=== PATIENT | male | born 1955 | race Caucasian/White ===

== ENCOUNTER 2017-02-27 10:15 | Observation (INO) | payer BC ==
[2017-02-27 10:20] VITALS: RESP 16
[2017-02-27 10:56] LABS: Prothrombin Time 39.1 sec (9.0-12.0)
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
[2017-02-27] MEDS ORDERED: NITROGLYCERIN SL TABS 0.4 MG TAB SUBLINGUAL STA (11:32)
--- NOTE | 2017-02-27 11:35 | US ---
EXAMINATION TYPE: US venous doppler duplex LE RT DATE OF EXAM: 02/27/2017 11:21 AM COMPARISON: NONE CLINICAL HISTORY: Acute pain, mid calf, past history of DVT. Sharp pain right calf today, history of DVT, Patient on Coumadin SIDE PERFORMED: Right TECHNIQUE: The lower extremity deep venous system is examined utilizing real time linear array sonog noe with graded compression, doppler sonography and color-flow sonography. VESSELS IMAGED: External Iliac Vein (EIV) Common Femoral Vein Deep Femoral Vein Greater Saphenous Vein * Femoral Vein Popliteal Vein Small Saphenous Vein * Proximal Calf Veins (* superficial vessels) Right Leg: No evidence of acute DVT IMPRESSION: No evidence for DVT at this time.
[2017-02-27] MEDS ORDERED: LORazepam 2 MG/ML SYRINGE IV STA (11:59)
[2017-02-27 12:02] LABS: Basophils # (A) 0.1 k/uL (0-0.2); Basophils % (A) 1 %; CH 32.2; CHCM 33.8; Eosinophils # (A) 0.4 k/uL (0-0.7); Eosinophils % (A) 5 %; HCT 44.5 % (39.0-53.0); HDW 3.17; HGB 14.8 gm/dL (13.0-17.5); Luc # (Auto) 0.31; Luc % (Auto) 4; Lymphocytes % (A) 25 %; MCH 31.9 pg (25.0-35.0); MCHC 33.2 g/dL (31.0-37.0); MCV 95.9 fL (80.0-100.0); Mean Platelet Volume 6.6; Monocytes # (A) 0.6 k/uL (0-1.0); Monocytes % (A) 7 %; Neutrophils # (A) 4.6 k/uL (1.3-7.7); Neutrophils % (A) 58 %; RBC 4.64 m/uL (4.30-5.90); RDW 15.2 % (11.5-15.5); WBC 7.9 k/uL (3.8-10.6); WBC (Perox) 8.15
[2017-02-27 12:11] LABS: ALT 36 U/L (21-72); AST 26 U/L (17-59); Alkaline Phosphatase 86 U/L (38-126); Anion Gap 9 mmol/L; Blood Urea Nitrogen 15 mg/dL (9-20); Calcium 9.1 mg/dL (8.4-10.2); Carbon Dioxide 24 mmol/L (22-30); Chloride 109 mmol/L (98-107); Glucose 86 mg/dL (74-99); Magnesium 1.9 mg/dL (1.6-2.3); Non-African American GFR(MDRD) >60 (>60 ml/min/1.73 sqM); Potassium 4.8 mmol/L (3.5-5.1); Sodium 142 mmol/L (137-145); Total Bilirubin 0.8 mg/dL (0.2-1.3); Total Protein 6.6 g/dL (6.3-8.2)
[2017-02-27 12:26] LABS: INR 3.5 (<1.1); Prothrombin Time 33.7 sec (9.0-12.0)
[2017-02-27 12:29] LABS: Creatine Kinase 123 U/L (55-170)
--- NOTE | 2017-02-27 12:40 | XR ---
EXAMINATION TYPE: XR chest 2V DATE OF EXAM: 02/27/2017 12:26 PM COMPARISON: 03/05/2016 HISTORY: Shortness of breath TECHNIQUE: Frontal and lateral views of the chest are obtained. FINDINGS: Scattered senescent parenchymal changes noted. Hyperinflation compatible with COPD. No evidence for infiltrate. No evidence for atelectasis. Heart size is stable. Mediastinal structures are stable and grossly unremarkable. No evidence for hilar prominence. Degenerative changes dorsal spine. IMPRESSION: 1. No evidence for acute pulmonary disease.
[2017-02-27 12:42] LABS: Creatine Kinase MB 0.8 ng/mL (0.0-2.4); Troponin I <0.012 ng/mL (0.000-0.034)
[2017-02-27] MEDS ORDERED: NALOXONE 0.4 MG/ML 1 ML VIAL IV PRN (13:09)
[2017-02-27] MEDS ORDERED: LORazepam 2 MG/ML SYRINGE IV PRN (13:09)
[2017-02-27] MEDS ORDERED: NITROGLYCERIN 0.2MG/HR PATCH TRANSDERM STA (13:17)
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
[2017-02-27] MEDS: ACETAMINOPHEN TAB 325 MG TAB PO PRN (17:23)
[2017-02-27 19:19] LABS: Creatine Kinase 99 U/L (55-170)
[2017-02-27 19:33] LABS: Creatine Kinase MB 0.6 ng/mL (0.0-2.4); Troponin I <0.012 ng/mL (0.000-0.034)
[2017-02-27] MEDS: MECLIZINE 25 MG TAB PO PRN (19:43)
[2017-02-27] MEDS: SODIUM CHLORIDE 0.9% 1,000 ML IV SCH (20:05)
[2017-02-27] MEDS: FAMOTIDINE 20 MG TAB PO SCH (20:07)
[2017-02-27] MEDS: METOPROLOL TARTRATE 50 MG TAB PO SCH (20:07)
[2017-02-27] MEDS ORDERED: HYDROcodone/APAP 5-325MG 1 EACH TAB PO PRN (20:09)
[2017-02-27] MEDS ORDERED: ONDANSETRON 4 MG/2 ML VIAL IVP PRN (20:54)
[2017-02-27] MEDS ORDERED: GABAPENTIN 300 MG CAP PO SCH (21:00)
[2017-02-27] MEDS ORDERED: ALLOPURINOL 300 MG TAB PO SCH (21:00)
[2017-02-27] MEDS ORDERED: MELATONIN 5 MG TABLET PO SCH (21:00)
[2017-02-27] MEDS ORDERED: IBUPROFEN 800 MG TAB PO SCH (22:00)
[2017-02-27] MEDS: IBUPROFEN 800 MG TAB PO PRN (23:26)
[2017-02-28] MEDS: MECLIZINE 25 MG TAB PO PRN (04:44)
[2017-02-28] MEDS: SODIUM CHLORIDE 0.9% 1,000 ML IV SCH (04:46)
--- NOTE | 2017-02-28 07:40 | HP ---
DATE OF ADMISSION: SUBJECTIVE: A 61-year-old white male with history of smoking with abnormal stress test in the past. Underwent cardiac catheterization in March of [address] Mejia. Was not found to have any blockages. He had a previous stent that was open, he was seen by photographer. He is having pain in his right leg. He is admitted for positive DVT but the ultrasound in the ER was negative. Indigestion with chest, he was given nitro, feels better now. Cardiac enzymes are normal. D-dimer is negative, admitted for rule out myocardial infarction. REVIEW OF SYSTEMS: A 14-point review of systems is negative except for in the HPI. PAST MEDICAL HISTORY: Asthma, angina, DVT, GERD, mitral valve prolapse, pulmonary embolism, thyroid disorder. Past medical history of bilateral DVT, PE in the right lung 10 years ago, gastric ulcer, hiatal hernia, asthma, joint disease, sciatica, migraines, vertigo, bilateral cataracts, hypothyroidism, orthopedic surgery in the past, ( ) splenectomy in 1972, left knee surgery in 1971, cystic degeneration, kidney stones removed 3 times, EGD with biopsies, colonoscopy x2. History of depression, anxiety, is a former smoker, alcohol daily. He drinks 4 ounces of alcohol a day. Father has CVA, TIA, mother congestive heart failure, myocardial infarction. Mother at age 85. HOME MEDICATIONS: 1. Allopurinol. 2. Aspirin. 3. Gabapentin. 4. Antivert. 5. Motrin. 6. Omeprazole. 7. Coumadin. ALLERGIES: CODEINE, WATERMELON. Essential temp 97 to 98, pulse 60's, respiratory 14 to 16, blood pressure 120s/80s. White count is 7.9, hemoglobin is 14.8, sodium 142, potassium 4.3. HEENT: Normocephalic, atraumatic. NECK: Supple. No mass. CHEST: No chest wall deformity. CARDIAC: S1, S2. ABDOMEN: Soft. Normal bowel sounds. SKIN: No rash, excoriation, bruising. CENTRAL NERVOUS SYSTEM: No focal deficits. EXTREMITIES: No clubbing. ASSESSMENT: 1. Coronary artery disease, rule out myocardial infarction. 2. Anxiety. 3. History of asthma. 4. Hypertension. 5. Coumadin therapy for prior pulmonary embolism and deep venous thrombosis. 6. Dyslipidemia. Rule out myocardial infarction, cardiac consultation. Possibly discharge home in the next 24 to 48 hours if the cardiac enzymes are all negative for 24 hours.
[2017-02-28] MEDS: ACETAMINOPHEN TAB 325 MG TAB PO PRN (07:54)
[2017-02-28] MEDS: METOPROLOL TARTRATE 50 MG TAB PO SCH (07:54)
[2017-02-28 08:27] LABS: INR 2.5 (<1.1); Prothrombin Time 23.8 sec (9.0-12.0)
[2017-02-28] MEDS ORDERED: ATORVASTATIN 40 MG TAB PO SCH (09:00)
[2017-02-28] MEDS ORDERED: ASPIRIN 81 MG CHEW PO SCH (09:00)
[2017-02-28] MEDS: IBUPROFEN 800 MG TAB PO PRN (12:17)
[2017-02-28] MEDS: FAMOTIDINE 20 MG TAB PO SCH (12:17)
[2017-02-28 12:20] VITALS: BP 111/66; PULSE 68; TEMP 98.2
[2017-02-28] MEDS ORDERED: WARFARIN 7.5 MG TAB PO SCH (18:00)
[2017-03-01] MEDS ORDERED: WARFARIN 7.5 MG TAB PO SCH (18:00)
== END 2017-02-28 14:57 | disposition home or self-care (01) ==
LOC: EC 10:15 → 3OBS 13:09
PROVIDERS: ADMIT Family Medicine; ATTEND Family Medicine
DX: I25.110 Atherosclerotic heart disease of native coronary artery with unstable angina pectoris (principal); F41.9 Anxiety disorder, unspecified; J45.909 Unspecified asthma, uncomplicated; I10 Essential (primary) hypertension; E78.5 Hyperlipidemia, unspecified; Z86.711 Personal history of pulmonary embolism; Z79.01 Long term (current) use of anticoagulants; Z86.718 Personal history of other venous thrombosis and embolism; Z79.899 Other long term (current) drug therapy; Z79.82 Long term (current) use of aspirin; K21.9 Gastro-esophageal reflux disease without esophagitis; I34.1 Nonrheumatic mitral (valve) prolapse; R42 Dizziness and giddiness; Z87.891 Personal history of nicotine dependence; R94.39 Abnormal result of other cardiovascular function study; Z95.5 Presence of coronary angioplasty implant and graft; Z88.3 Allergy status to other anti-infective agents; Z88.5 Allergy status to narcotic agent; Z91.018 Allergy to other foods; F32.9 Major depressive disorder, single episode, unspecified; M79.604 Pain in right leg; K30 Functional dyspepsia; R07.89 Other chest pain; Z90.81 Acquired absence of spleen; Z87.442 Personal history of urinary calculi; M10.9 Gout, unspecified; Z87.11 Personal history of peptic ulcer disease
CPT/HCPCS: 99285; 96374; 36415; 93005; 85379; 80053; 82550; 82553; 83735; 84484 ×2; 85025; 85610 ×2; 85730; 71020; 93971; G0378 ×2; J2060; J2405; 96375

== ENCOUNTER 2017-05-08 09:49 | Observation (INO) | payer BC ==
[2017-05-08] MEDS ORDERED: ASPIRIN 81 MG CHEW PO STA (10:15)
[2017-05-08] MEDS ORDERED: NITROGLYCERIN OINT 1 INCH/GM PACKET TOPICAL STA (10:15)
--- NOTE | 2017-05-08 10:18 | ED ---
General Adult HPI - General Chief complaint: Chest Pain Stated complaint: Chest Tightness Time Seen by Provider: 05/08/17 09:55 Source: patient, RN notes reviewed Mode of arrival: wheelchair Limitations: no limitations - History of Present Illness Initial comments: This is a 61-year-old male who presents emergency department with past medical history significant for coronary artery disease. Patient states he's supposed to have his catheterization in the near future and possible stenting because of his coronary artery disease. 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 Patient states he had another event this morning and it made him again concerns became the emergency department. Patient states that lasted for about 15 minutes. Patient states his been no difficulty breathing but again was very lightheaded. Patient denies any diaphoresis patient denies any nausea vomiting. Patient denies any abdominal pain. Patient denies any headache patient denies numbness weakness. Patient denies any recent fever chills or cough. - Related Data Home Medications Medication Instructions Recorded Confirmed Allopurinol [Zyloprim] 300 mg PO DAILY 01/12/15 05/08/17 Aspirin [Aspirin EC] 81 mg PO DAILY 01/12/15 05/08/17 Gabapentin 300 mg PO HS 01/12/15 05/08/17 Ibuprofen [Motrin] 400 mg PO Q6HR PRN 03/05/16 05/08/17 Omeprazole 20 mg PO DAILY 03/05/16 05/08/17 Warfarin [Coumadin] 3.75 mg PO SUTUTHSA 02/27/17 05/08/17 Warfarin [Coumadin] 7.5 mg PO MOWEFR 02/27/17 05/08/17 Previous Rx's Medication Instructions Recorded Atorvastatin Calcium [Lipitor] 40 mg PO DAILY #30 tab 01/14/15 Nitroglycerin Sl Tabs [Nitrostat] 0.4 mg SUBLINGUAL Q5M PRN #30 tab 01/14/15 Metoprolol Tartrate [Lopressor] 50 mg PO BID #60 tab 03/09/16 Allergies Allergy/AdvReac Type Severity Reaction Status Date / Time codeine AdvReac "LOOPY" Verified 05/08/17 10:41 Iodine and Iodide Containing AdvReac "LOOPY" Verified 05/08/17 10:41 Produc watermelon AdvReac Wheezing Verified 07/04/17 10:41 Review of Systems ROS Statement: Those systems with pertinent positive or pertinent negative responses have been documented in the HPI. ROS Other: All systems not noted in ROS Statement are negative. Past Medical History Past Medical History: Asthma, Chest Pain / Angina, Deep Vein Thrombosis (DVT), GERD/Reflux, Mitral Valve Prolapse (MVP), Pulmonary Embolus (PE), Thyroid Disorder Additional Past Medical History / Comment(s): Bilateral leg DVT's, PE R lung about 10 yrs ago, old healed gastric ulcer, hiatal hernia, asthma as a child, DDD neck and back-sciatica, migraines with vertigo, starting of bilateral cataracts, overactive thyroid. History of Any Multi-Drug Resistant Organisms: None Reported Past Surgical History: Orthopedic Surgery Additional Past Surgical History / Comment(s): skiing accident with splenectomy 1972, L Knee surgery 1971 d/t cystic degeneration, Kidney stones removed 3 times , EGD with bx, colonoscopy x 2. Past Anesthesia/Blood Transfusion Reactions: No Reported Reaction, Motion Sickness Past Psychological History: Anxiety, Depression Smoking Status: Former smoker Past Alcohol Use History: Daily Past Drug Use History: None Reported - Past Family History Father Family Medical History: CVA/TIA Mother Family Medical History: Congestive Heart Failure (CHF), Myocardial Infarction ( [place]) Additional Family Medical History / Comment(s): Mother at the age of 85yrs. General Exam - General Exam Comments Initial Comments: GENERAL: Patient is well-developed and well-nourished. Patient is nontoxic and well- hydrated and is in no acute distress. ENT: Neck is soft and supple. No significant lymphadenopathy is noted. Oropharynx is clear. Moist mucous membranes. Neck has full range of motion without eliciting any pain. EYES: The sclera were anicteric and conjunctiva were pink and moist. Extraocular movements were intact and pupils were equal round and reactive to light. Eyelids were unremarkable. PULMONARY: Unlabored respirations. Good breath sounds bilaterally. No audible rales rhonchi or wheezing was noted. CARDIOVASCULAR: There is a regular rate and rhythm without any murmurs gallops or rubs. ABDOMEN: Soft and nontender with normal bowel sounds. No palpable organomegaly was noted. There is no palpable pulsatile mass. SKIN: Skin is clear with no lesions or rashes and otherwise unremarkable. NEUROLOGIC: Patient is alert and oriented x3. Cranial nerves II through XII are grossly intact. Motor and sensory are also intact. Normal speech, volume and content. Symmetrical smile. MUSCULOSKELETAL: Normal extremities with adequate strength and full range of motion. No lower extremity swelling or edema. No calf tenderness. LYMPHATICS: No significant lymphadenopathy is noted PSYCHIATRIC: Normal psychiatric evaluation. Normal interpersonal interactions appears functionally intact in deals appropriately with others. No signs of depression. No signs of anxiety. Limitations: no limitations Course Vital Signs 05/08/17 05/08/17 09:53 10:56 Temperature 97.9 F Pulse Rate 61 60 Respiratory 16 20 Rate Blood Pressure 134/83 126/69 O2 Sat by Pulse 98 98 Oximetry Medical Decision Making - Medical Decision Making EKG shows a sinus bradycardia 59 bpm WA interval is 160 QRS is 92 QT interval 424 QTC is 419. Patient's EKG shows no ST segment elevation or depression or T wave abnormalities are noted. Chest x-ray shows no acute abnormality. Patient refused any nitroglycerin whatsoever. I spoke with Dr. Irizarry agreed to admit the patient admitted the patient I consult cardiology. - Lab Data Result diagrams: 05/08/17 10:09 05/08/17 10:09 Lab Results 05/08/17 05/08/17 05/08/17 Range/Units 10:09 10:09 10:09 WBC 8.2 (3.8-10.6) k/uL RBC 4.81 (4.30-5.90) m/uL Hgb 15.2 (13.0-17.5) gm/dL Hct 45.0 (39.0-53.0) % MCV 93.5 (80.0-100.0) fL MCH 31.7 (25.0-35.0) pg MCHC 33.9 (31.0-37.0) g/dL RDW 14.9 (11.5-15.5) % Plt Count 390 (150-450) k/uL Neutrophils % 58 % Lymphocytes % 25 % Monocytes % 8 % Eosinophils % 5 % Basophils % 1 % Neutrophils # 4.8 (1.3-7.7) k/uL Lymphocytes # 2.1 (1.0-4.8) k/uL Monocytes # 0.6 (0-1.0) k/uL Eosinophils # 0.4 (0-0.7) k/uL Basophils # 0.1 (0-0.2) k/uL PT (9.0-12.0) sec INR (<1.1) APTT (22.0-30.0) sec Sodium 143 (137-145) mmol/L Potassium 5.1 (3.5-5.1) mmol/L Chloride 108 H (98-107) mmol/L Carbon Dioxide 26 (22-30) mmol/L Anion Gap 9 mmol/L BUN 14 (9-20) mg/dL Creatinine 0.98 (0.66-1.25) mg/dL Est GFR (MDRD) Af Amer >60 (>60 ml/min/1.73 sqM) Est GFR (MDRD) Non-Af >60 (>60 ml/min/1.73 sqM) Glucose 98 (74-99) mg/dL Calcium 9.4 (8.4-10.2) mg/dL Magnesium 1.9 (1.6-2.3) mg/dL Total Bilirubin 0.8 (0.2-1.3) mg/dL AST 43 (17-59) U/L ALT 44 (21-72) U/L Alkaline Phosphatase 95 (38-126) U/L Total Creatine Kinase 99 (55-170) U/L CK-MB (CK-2) 0.6 (0.0-2.4) ng/mL CK-MB (CK-2) Rel Index 0.6 Troponin I <0.012 (0.000-0.034) ng/mL Total Protein 6.6 (6.3-8.2) g/dL Albumin 4.1 (3.5-5.0) g/dL 05/08/17 Range/Units 10:09 WBC (3.8-10.6) k/uL RBC (4.30-5.90) m/uL Hgb (13.0-17.5) gm/dL Hct (39.0-53.0) % MCV (80.0-100.0) fL MCH (25.0-35.0) pg MCHC (31.0-37.0) g/dL RDW (11.5-15.5) % Plt Count (150-450) k/uL Neutrophils % % Lymphocytes % % Monocytes % % Eosinophils % % Basophils % % Neutrophils # (1.3-7.7) k/uL Lymphocytes # (1.0-4.8) k/uL Monocytes # (0-1.0) k/uL Eosinophils # (0-0.7) k/uL Basophils # (0-0.2) k/uL PT 24.5 H (9.0-12.0) sec INR 2.5 (<1.1) APTT 28.4 (22.0-30.0) sec Sodium (137-145) mmol/L Potassium (3.5-5.1) mmol/L Chloride (98-107) mmol/L Carbon Dioxide (22-30) mmol/L Anion Gap mmol/L BUN (9-20) mg/dL Creatinine (0.66-1.25) mg/dL Est GFR (MDRD) Af Amer (>60 ml/min/1.73 sqM) Est GFR (MDRD) Non-Af (>60 ml/min/1.73 sqM) Glucose (74-99) mg/dL Calcium (8.4-10.2) mg/dL Magnesium (1.6-2.3) mg/dL Total Bilirubin (0.2-1.3) mg/dL AST (17-59) U/L ALT (21-72) U/L Alkaline Phosphatase (38-126) U/L Total Creatine Kinase (55-170) U/L CK-MB (CK-2) (0.0-2.4) ng/mL CK-MB (CK-2) Rel Index Troponin I (0.000-0.034) ng/mL Total Protein (6.3-8.2) g/dL Albumin (3.5-5.0) g/dL Disposition Clinical Impression: Chest pain Disposition: ADMITTED IP TO THIS HOSP Referrals: Geni Sharif MD [Primary Care Provider] - 1-2 days Time of Disposition: 11:16
[2017-05-08 10:34] LABS: Basophils # (A) 0.1 k/uL (0-0.2); Basophils % (A) 1 %; CH 32.1; CHCM 34.6; Eosinophils # (A) 0.4 k/uL (0-0.7); Eosinophils % (A) 5 %; HDW 3.05; HGB 15.2 gm/dL (13.0-17.5); Luc # (Auto) 0.25; Luc % (Auto) 3; Lymphocytes # (A) 2.1 k/uL (1.0-4.8); Lymphocytes % (A) 25 %; MCH 31.7 pg (25.0-35.0); MCHC 33.9 g/dL (31.0-37.0); MCV 93.5 fL (80.0-100.0); Mean Platelet Volume 6.9; Monocytes # (A) 0.6 k/uL (0-1.0); Monocytes % (A) 8 %; Neutrophils # (A) 4.8 k/uL (1.3-7.7); Neutrophils % (A) 58 %; RBC 4.81 m/uL (4.30-5.90); RDW 14.9 % (11.5-15.5); WBC 8.2 k/uL (3.8-10.6); WBC (Perox) 8.14
[2017-05-08 10:39] LABS: ALT 44 U/L (21-72); AST 43 U/L (17-59); Alkaline Phosphatase 95 U/L (38-126); Anion Gap 9 mmol/L; Blood Urea Nitrogen 14 mg/dL (9-20); Calcium 9.4 mg/dL (8.4-10.2); Carbon Dioxide 26 mmol/L (22-30); Chloride 108 mmol/L (98-107); Glucose 98 mg/dL (74-99); Magnesium 1.9 mg/dL (1.6-2.3); Non-African American GFR(MDRD) >60 (>60 ml/min/1.73 sqM); Potassium 5.1 mmol/L (3.5-5.1); Sodium 143 mmol/L (137-145); Total Bilirubin 0.8 mg/dL (0.2-1.3); Total Protein 6.6 g/dL (6.3-8.2)
--- NOTE | 2017-05-08 10:46 | XR ---
EXAMINATION TYPE: XR chest 2V DATE OF EXAM: 05/08/2017 COMPARISON: 02/27/2017 HISTORY: Pain TECHNIQUE: Frontal and lateral views of the chest are obtained. FINDINGS: Heart and mediastinum are normal. Lungs are clear. There is no pleural effusion. Bony thor ax is intact. There are chest leads. IMPRESSION: No active cardiopulmonary disease. No change.
[2017-05-08 10:52] LABS: INR 2.5 (<1.1); Partial Thromboplastin Time 28.4 sec (22.0-30.0); Prothrombin Time 24.5 sec (9.0-12.0)
[2017-05-08 10:59] LABS: Creatine Kinase 99 U/L (55-170)
[2017-05-08 11:12] LABS: Creatine Kinase MB 0.6 ng/mL (0.0-2.4); Troponin I <0.012 ng/mL (0.000-0.034)
[2017-05-08] MEDS ORDERED: NITROGLYCERIN SL TABS 0.4 MG TAB SUBLINGUAL PRN ×2 (11:17→12:55)
[2017-05-08 14:18] VITALS: BMI 25.9
[2017-05-08] MEDS: METOPROLOL TARTRATE 50 MG TAB PO SCH ×2 (14:41→21:39)
[2017-05-08] MEDS: ALLOPURINOL 300 MG TAB PO SCH (14:41)
[2017-05-08] MEDS: PANTOPRAZOLE 40 MG TABLET PO SCH (14:41)
[2017-05-08] MEDS: ATORVASTATIN 40 MG TAB PO SCH ×2 (14:41→21:39)
[2017-05-08 17:03] LABS: Creatine Kinase 92 U/L (55-170)
[2017-05-08 17:16] LABS: Creatine Kinase MB 0.5 ng/mL (0.0-2.4); Troponin I <0.012 ng/mL (0.000-0.034)
[2017-05-08] MEDS ORDERED: PHYTONADIONE ORAL 5 MG/5 ML ORAL.SYRG PO STA (18:14)
--- NOTE | 2017-05-08 18:36 | P.HPIM ---
History of Present Illness H&P Date: 05/08/17 Chief Complaint: Chest pain This is a 61-year-old patient follows with Dr. Mejia from cardiology. Patient chronic stable medical conditions include GERD, hyperlipidemia, osteoarthritis, hiatal hernia, anxiety depression. Patient is on Coumadin patient's had at least 2 or 3 DVTs and associated PE. Patient had a cardiac catheterization about [address] Mejia had didn't have much of her disease and then about 14 months ago had another cardiac catheterization showing about 50% lesion. for one week patient does have having frequent chest pains central, pressure-like more so with exertion sometimes is associated with dizziness,, sweating, a feeling of sometimes of nearly passing out ,present for variable amounts hence patient is admitted with unstable angina. Review of Systems GEN.: Tired EYES: None HEENT: None NECK: None RESPIRATORY: As above CARDIOVASCULAR: As above GASTROINTESTINAL: As above GENITOURINARY: None MUSCULOSKELETAL: Neck pain LYMPHATICS: None HEMATOLOGICAL: None PSYCHIATRY: Anxiety NEUROLOGICAL: None Past Medical History Past Medical History: Asthma, Chest Pain / Angina, Deep Vein Thrombosis (DVT), GERD/Reflux, Hyperlipidemia, Mitral Valve Prolapse (MVP), Osteoarthritis (OA), Pulmonary Embolus (PE), Thyroid Disorder Additional Past Medical History / Comment(s): Bilateral leg DVT's, PE R lung about 10 yrs ago, old healed gastric ulcer, hiatal hernia, asthma as a child, DDD neck and back-sciatica, migraines with vertigo, starting of bilateral cataracts, overactive thyroid. History of Any Multi-Drug Resistant Organisms: None Reported Past Surgical History: Heart Catheterization, Orthopedic Surgery Additional Past Surgical History / Comment(s): skiing accident with splenectomy 1972, L Knee surgery 1971 d/t cystic degeneration, Kidney stones removed 3 times , EGD with bx, colonoscopy x 2. Past Anesthesia/Blood Transfusion Reactions: No Reported Reaction, Motion Sickness Past Psychological History: Anxiety, Depression Additional Psychological History / Comment(s): Pt states he has alot of anxiety and has ativan which he uses infrequently. He is independent. Smoking Status: Former smoker Past Alcohol Use History: Daily Additional Past Alcohol Use History / Comment(s): Smoke for 10 years stopped in 1988, drinks about 4 ounces of alcohol a day that is [place] [employer] , lives with his , Past Drug Use History: None Reported - Past Family History Father Family Medical History: CVA/TIA Mother Family Medical History: Congestive Heart Failure (CHF), Myocardial Infarction ( [place]) Additional Family Medical History / Comment(s): Mother at the age of 85yrs. Medications and Allergies Home Medications Medication Instructions Recorded Confirmed Type Allopurinol [Zyloprim] 300 mg PO DAILY 01/12/15 05/08/17 History Aspirin [Aspirin EC] 81 mg PO DAILY 01/12/15 05/08/17 History Gabapentin 300 mg PO HS 01/12/15 05/08/17 History Ibuprofen [Motrin] 400 mg PO Q6HR PRN 03/05/16 05/08/17 History Omeprazole 20 mg PO DAILY 03/05/16 05/08/17 History Warfarin [Coumadin] 3.75 mg PO SUTUTHSA 02/27/17 05/08/17 History Warfarin [Coumadin] 7.5 mg PO MOWEFR 02/27/17 05/08/17 History Allergies Allergy/AdvReac Type Severity Reaction Status Date / Time codeine AdvReac "LOOPY" Verified 05/08/17 10:41 Iodine and Iodide Containing AdvReac "LOOPY" Verified 05/08/17 10:41 Produc watermelon AdvReac Wheezing Verified 05/08/17 10:41 Physical Exam Vitals: Vital Signs Temp Pulse Pulse Resp BP BP Pulse Ox 05/08/17 16:00 98.5 F 64 18 123/65 96 05/08/17 12:03 98.2 F 65 18 128/76 98 05/08/17 11:43 98.4 F 61 18 114/69 97 05/08/17 10:56 60 20 126/69 98 05/08/17 09:53 97.9 F 61 16 134/83 98 VITAL SIGNS: 97.9, 61, 16, 134/83, 98% room air GENERAL: Average built, laying in bed, comfortable. EYES: Pupils equal. Conjunctiva normal. HEENT: External appearance of nose and ears normal, oral cavity grossly normal. NECK: JVD not raised; masses not palpable. HEART: First and second heart sounds are normal; no edema. LUNGS: Respiratory rate normal; clear to auscultation. ABDOMEN: Soft, nontender, liver spleen not palpable, no masses palpable. LYMPHATICS: No lymph nodes palpable in the axilla and neck. PSYCH: [Alert and oriented x3; mood and affect slightly anxious l. NEUROLOGICAL: Cranial nerves grossly intact; no facial asymmetry, power and sensation grossly intact. Results Results: White count 8.2, hemoglobin 15.2, INR 2.5, pressure 5.1, BUS 14, creatinine 0.98 Troponin 2 negative EKG sinus bradycardia CBC & Chem 7: 05/08/17 10:09 05/08/17 10:09 Labs: Abnormal Lab Results - Last 24 Hours (Table) 05/08/17 05/08/17 Range/Units 10:09 10:09 PT 24.5 H (9.0-12.0) sec Chloride 108 H (98-107) mmol/L Thrombosis Risk Factor Assmnt - Choose All That Apply Any of the Below Risk Factors Present?: Yes Each Factor Represents 1 point: Obesity (BMI >25) Other Risk Factors: Yes Each Risk Factor Represents 2 Points: Age 61-74 years Thrombosis Risk Factor Assessment Total Risk Factor Score: 3 Thrombosis Risk Factor Assessment Level: Moderate Risk Assessment and Plan Plan: Assessment: -Unstable angina in a patient who's had a prior cardiac catheterization 14 months ago that showed 50% stenosis , now having classical progressive symptoms. -history of multiple DVT and PE chronically on Coumadin -GERD with hiatal hernia -hyperlipidemia -Primary osteoarthritis multiple joints including the neck -Anxiety depression not otherwise specified -Chronic alcohol use drinks 4 ounces of [place] every day Plan: Patient's Coumadin has been put on hold. We give small dose of 2.5 mg of vitamin K this was discussed with the patient, with a view to anticipated cardiac catheterization that is expecting. Other home medications are resumed. Cardiology is consulted with a view to possible cardiac catheterization. Care was discussed with the patient
[2017-05-08] MEDS ORDERED: GABAPENTIN 300 MG CAP PO SCH (21:00)
[2017-05-08] MEDS ORDERED: ZOLPIDEM 5 MG TAB PO SCH (21:15)
[2017-05-08] MEDS: ACETAMINOPHEN TAB 325 MG TAB PO PRN (21:39)
[2017-05-08 22:33] LABS: Creatine Kinase 80 U/L (55-170)
[2017-05-08 22:44] LABS: Creatine Kinase MB 0.5 ng/mL (0.0-2.4); Troponin I <0.012 ng/mL (0.000-0.034)
[2017-05-09 06:30] LABS: INR 2.6 (<1.1); Prothrombin Time 25.1 sec (9.0-12.0)
[2017-05-09 06:33] LABS: Cholesterol 126 mg/dL (<200); HDL Cholesterol 48 mg/dL (40-60); Triglycerides 155 mg/dL (<150)
[2017-05-09] MEDS: ACETAMINOPHEN TAB 325 MG TAB PO PRN (08:35)
[2017-05-09] MEDS: PANTOPRAZOLE 40 MG TABLET PO SCH (08:38)
[2017-05-09] MEDS ORDERED: ASPIRIN 325 MG TAB PO SCH (09:00)
[2017-05-09] MEDS: ALLOPURINOL 300 MG TAB PO SCH (09:42)
[2017-05-09] MEDS: METOPROLOL TARTRATE 50 MG TAB PO SCH (09:42)
--- NOTE | 2017-05-09 09:43 | P.CRDCN ---
History of Present Illness Reason for Consult (text): Chest pain History of present illness: Mr. Mota is a 60-year-old gentleman who presented to the emergency room with the complaint of chest discomfort. And uses a history that he has been having intermittent discomfort in the chest pain is in the substernal area dull aching pain lasting for few minutes pain does not radiate to the arm neck or jaw. And had a 3 or 4 episodes of for recurrent chest discomfort in view of that he came to the emergency room. Patient was evaluated by Dr. Doll for a couple of days ago and was advised a repeat catheter cardiac catheterization. Patient has a single-vessel coronary artery disease in the mid RCA in the past by the cardiac catheterization in 2015 Past Medical History Past Medical History: Asthma, Chest Pain / Angina, Deep Vein Thrombosis (DVT), GERD/Reflux, Hyperlipidemia, Mitral Valve Prolapse (MVP), Osteoarthritis (OA), Pulmonary Embolus (PE), Thyroid Disorder Additional Past Medical History / Comment(s): Bilateral leg DVT's, PE R lung about 10 yrs ago, old healed gastric ulcer, hiatal hernia, asthma as a child, DDD neck and back-sciatica, migraines with vertigo, starting of bilateral cataracts, overactive thyroid. History of Any Multi-Drug Resistant Organisms: None Reported Past Surgical History: Heart Catheterization, Orthopedic Surgery Additional Past Surgical History / Comment(s): skiing accident with splenectomy 1972, L Knee surgery 1971 d/t cystic degeneration, Kidney stones removed 3 times , EGD with bx, colonoscopy x 2. Past Anesthesia/Blood Transfusion Reactions: No Reported Reaction, Motion Sickness Past Psychological History: Anxiety, Depression Additional Psychological History / Comment(s): Pt states he has alot of anxiety and has ativan which he uses infrequently. He is independent. Smoking Status: Former smoker Past Alcohol Use History: Daily Additional Past Alcohol Use History / Comment(s): Smoke for 10 years stopped in 1988, drinks about 4 ounces of alcohol a day that is [place] [employer] , lives with his , Past Drug Use History: None Reported - Past Family History Father Family Medical History: CVA/TIA Mother Family Medical History: Congestive Heart Failure (CHF), Myocardial Infarction ( [place]) Additional Family Medical History / Comment(s): Mother at the age of 85yrs. Medications and Allergies Home Medications Medication Instructions Recorded Confirmed Type Allopurinol [Zyloprim] 300 mg PO DAILY 01/12/15 05/08/17 History Aspirin [Aspirin EC] 81 mg PO DAILY 01/12/15 05/08/17 History Gabapentin 300 mg PO HS 01/12/15 05/08/17 History Ibuprofen [Motrin] 400 mg PO Q6HR PRN 03/05/16 05/08/17 History Omeprazole 20 mg PO DAILY 03/05/16 05/08/17 History Warfarin [Coumadin] 3.75 mg PO SUTUTHSA 02/27/17 05/08/17 History Warfarin [Coumadin] 7.5 mg PO MOWEFR 02/27/17 05/08/17 History Allergies Allergy/AdvReac Type Severity Reaction Status Date / Time codeine AdvReac "LOOPY" Verified 05/08/17 10:41 Iodine and Iodide Containing AdvReac "LOOPY" Verified 05/08/17 10:41 Produc watermelon AdvReac Wheezing Verified 05/08/17 10:41 Physical Exam Vitals: Vital Signs Temp Pulse Pulse Resp BP BP Pulse Ox 05/09/17 08:00 97.5 F L 65 18 121/79 97 05/09/17 04:00 97.7 F 55 L 16 119/70 96 05/09/17 00:00 54 L 16 05/08/17 23:51 97.6 F 58 L 16 121/78 97 05/08/17 20:00 56 L 16 05/08/17 19:54 98.0 F 68 16 135/77 95 05/08/17 16:00 98.5 F 64 18 123/65 96 05/08/17 12:03 98.2 F 65 18 128/76 98 05/08/17 11:43 98.4 F 61 18 114/69 97 05/08/17 10:56 60 20 126/69 98 05/08/17 09:53 97.9 F 61 16 134/83 98 Intake and Output 05/08/17 05/09/17 05/09/17 22:59 06:59 14:59 Intake Total 120 Balance 120 Intake: Oral 120 Other: Voiding Method Toilet Toilet Toilet # Voids 1 1 Vital signs are reviewed. Head ENT negative Neck is supple. No increase in jugular venous pressure. Both the carotid pulses are felt and there is no bruit Chest is symmetrical. His Heart. First and second heart sounds are normal murmurs are heard. Is clinically clear to auscultation and percussion. Abdomen negative. Extremities peripheral pulses since are 2+. EKG shows normal sinus rhythm without any acute ischemic changes. Is INR is 2.5. Troponins are normal. Results 05/08/17 10:09 05/08/17 10:09 Cardiac Enzymes 05/08/17 05/08/17 05/08/17 Range/Units 10:09 10:09 16:17 AST 43 (17-59) U/L CK-MB (CK-2) 0.6 0.5 (0.0-2.4) ng/mL Troponin I <0.012 <0.012 (0.000-0.034) ng/mL 05/08/17 Range/Units 21:59 AST (17-59) U/L CK-MB (CK-2) 0.5 (0.0-2.4) ng/mL Troponin I <0.012 (0.000-0.034) ng/mL Coagulation 05/08/17 05/09/17 Range/Units 10:09 05:47 PT 24.5 H 25.1 H (9.0-12.0) sec APTT 28.4 (22.0-30.0) sec Lipids 05/09/17 Range/Units 05:47 Triglycerides 155 H (<150) mg/dL Cholesterol 126 (<200) mg/dL HDL Cholesterol 48 (40-60) mg/dL CBC 05/08/17 Range/Units 10:09 WBC 8.2 (3.8-10.6) k/uL RBC 4.81 (4.30-5.90) m/uL Hgb 15.2 (13.0-17.5) gm/dL Hct 45.0 (39.0-53.0) % Plt Count 390 (150-450) k/uL Comprehensive Metabolic Panel 05/08/17 Range/Units 10:09 Sodium 143 (137-145) mmol/L Potassium 5.1 (3.5-5.1) mmol/L Chloride 108 H (98-107) mmol/L Carbon Dioxide 26 (22-30) mmol/L BUN 14 (9-20) mg/dL Creatinine 0.98 (0.66-1.25) mg/dL Glucose 98 (74-99) mg/dL Calcium 9.4 (8.4-10.2) mg/dL AST 43 (17-59) U/L ALT 44 (21-72) U/L Alkaline Phosphatase 95 (38-126) U/L Total Protein 6.6 (6.3-8.2) g/dL Albumin 4.1 (3.5-5.0) g/dL Current Medications Generic Name Dose Route Start Last Admin Trade Name Candida PRN Reason Stop Dose Admin Acetaminophen 650 mg 05/08/17 21:03 05/09/17 08:35 Tylenol Tab PO 650 mg Q4HR PRN Administration Fever and/ or Pain Allopurinol 300 mg 05/08/17 13:00 05/08/17 14:41 Zyloprim PO Not Given DAILY MICHAEL Aspirin 325 mg 05/09/17 09:00 05/09/17 08:36 Aspirin PO 325 mg DAILY MICHAEL Administration Atorvastatin Calcium 40 mg 05/08/17 13:00 05/08/17 21:39 Lipitor PO 40 mg DAILY MICHAEL Administration Gabapentin 300 mg 05/08/17 21:00 05/09/17 06:16 Neurontin PO Not Given HS MICHAEL Metoprolol Tartrate 50 mg 05/08/17 13:00 05/08/17 21:39 Lopressor PO 50 mg BID MICHAEL Administration Nitroglycerin 0.4 mg 05/08/17 11:17 Nitrostat SUBLINGUAL Q5M PRN Chest Pain Pantoprazole Sodium 40 mg 05/08/17 13:00 05/09/17 08:38 Protonix PO 40 mg [id number] MICHAEL Administration Zolpidem Tartrate 5 mg 05/08/17 21:15 05/08/17 21:39 Ambien PO 5 mg HS MICHAEL Administration Intake and Output 05/08/17 05/09/17 05/09/17 22:59 06:59 14:59 Intake Total 120 Balance 120 Intake: Oral 120 Other: Voiding Method Toilet Toilet Toilet # Voids 1 1 05/08/17 10:09 05/08/17 10:09 EKG Interpretations (text) EKG shows a normal sinus rhythm without any acute ischemic changes. Assessment and Plan Plan: This patient is a having a recurrent chest pain rule out unstable angina syndrome. His and has a known history of coronary artery disease with about 50- 60% stenosis in the right coronary artery. The discuss with Dr. Doll regarding further evaluation by repeat cardiac catheterization.
[2017-05-09] MEDS ORDERED: NITROGLYCERIN SL TABS 0.4 MG TAB SUBLINGUAL PRN (10:10)
[2017-05-09] MEDS ORDERED: ATORVASTATIN 80 MG TAB PO STA (10:10)
[2017-05-09] MEDS ORDERED: ASPIRIN 325 MG TAB PO STA (10:10)
[2017-05-09] MEDS ORDERED: ALPRAZolam 0.25 MG TAB PO PRN (10:10)
[2017-05-09] MEDS ORDERED: ALPRAZolam 0.5 MG TAB PO PRN (10:10)
[2017-05-09] MEDS ORDERED: SODIUM CHLORIDE 0.9% 1,000 ML in EMPTY BAG 1 BAG IV ONE (10:10)
[2017-05-09] MEDS ORDERED: PHYTONADIONE ORAL 5 MG/5 ML ORAL.SYRG PO STA (10:43)
[2017-05-09 13:38] LABS: INR 1.9 (<1.1)
[2017-05-09] MEDS ORDERED: IV FLUID CONTINUATION 1,000 ML IV ONE (13:50)
[2017-05-09] MEDS ORDERED: MIDAZOLAM 2 MG/2 ML VIAL IVP ONE (14:12)
[2017-05-09] MEDS ORDERED: methylPREDNISolone SOD SUCCI 125 MG/2 ML VIAL IV ONE (14:13)
[2017-05-09] MEDS ORDERED: diphenhydrAMINE 50 MG/ML 1 ML VIAL IVP ONE (14:13)
[2017-05-09] MEDS ORDERED: LIDOCAINE 2% INJ 20 MG/ML SQ ONE (14:13)
[2017-05-09] MEDS ORDERED: VERAPAMIL SYRINGE (5 MG/10 ML) INTRAARTER ONE (14:15)
[2017-05-09] MEDS ORDERED: HEPARIN SODIUM 1,000 UN/ML (10ML VL) IV ONE (14:20)
[2017-05-09] MEDS ORDERED: HYDROmorphone 2 MG/ML 1 ML SYRINGE IVP ONE (14:21)
[2017-05-09] MEDS ORDERED: IOHEXOL 350 MG/ML 125ML BOTTLE INJ ONE (14:30)
[2017-05-09] MEDS ORDERED: ONDANSETRON 4 MG/2 ML VIAL IVP ONE (14:31)
--- NOTE | 2017-05-09 14:38 | P.PCN ---
Date of Procedure: 05/09/17 Preoperative Diagnosis: Postoperative Diagnosis: Procedure(s) Performed: Implants: Indications for Procedure: Operative Findings: CARDIAC CATHETERIZATION PERFORMING PHYSICIAN: Abundio Mejia MD, VI PREPROCEDURE DIAGNOSES: - Chest discomfort - Known CAD and known intermediate disease involving the distal RCA - Multiple risk factors for CAD including hypertension and dyslipidemia POSTPROCEDURE DIAGNOSES: - Intermediate disease involving the distal RCA seems to be unchanged compared to before - Elevated left ventricular end-diastolic pressure PROCEDURE PERFORMED: 1. Selective right and left coronary angiogram 2. Left heart catheterization APPROACH: Right radial artery PROCEDURE DESCRIPTION: After obtaining an informed consent and explaining the procedure benefits, risks , and complications, the patient was brought to cardiac supervisor laboratory. Local anesthesia was performed using lidocaine subcutaneously. The right radial artery was cannulated using Seldinger technique, the guidewire passed easily, following that we advanced a 6-[place] sheath dilator assembly, the wire and dilator were removed and sheath was flushed. Following that, 2 mg of verapamil along with 3000 unit heparin were given. Selective right and left coronary angiogram using a 6-[place] JR4 and JL 3.5 catheters. Following that we did left heart catheterization using 6-[place] pigtail catheter. The procedure was completed there was no complication. SELECTIVE CORONARY ANGIOGRAM: The right coronary artery: Is a large caliber vessel and its a dominant vessel. The proximal RCA appears to have mild disease only. The mid RCA is tortuous was mild disease only this is by the bifurcation of the acute marginal branch. The RCA distally has eccentric lesion seems to be unchanged compared to before and seems to be in the range of 50%. The RCA distally bifurcates into PDA and PLV branches both are angiographically normal. Left main: Is angiographically normal. Bifurcates into the left circumflex and left anterior descending artery The left circumflex: Is a medium caliber vessel and its and on dominant vessel. Its angiographically normal. The left anterior descending artery: The proximal LAD appeared to have mild disease only this is by the bifurcation of the large first diagonal branch. The mid LAD appeared to be angiographically normal and LAD distally appears to be angiographically normal. HEMODYNAMICS: The left ventricular end-diastolic pressure was 18-20 mmHg and no gradient was identified across aortic valve POSTPROCEDURE MANAGEMENT: Medical treatment Risk factors modifications Follow-up with the patient Description of Procedure:
[2017-05-09 14:51] VITALS: RESP 16; TEMP 98.1
[2017-05-09] MEDS ORDERED: WARFARIN 10 MG TAB PO ONE (15:18)
[2017-05-09] MEDS ORDERED: ENOXAPARIN 120 MG/0.8 ML SYRINGE SQ STA (15:24)
--- NOTE | 2017-05-09 15:24 | P.DS ---
Providers Date of admission: 05/08/17 11:17 Expected date of discharge: 05/09/17 Attending physician: He Oreilly Consults: 05/08/17 11:17 Consult Physician Urgent Consulting Provider: [facility] Reason/Comments: Chest pain Do you want consulting provider notified?: Yes Dr. Mejia from cardiology Primary care physician: [facility] Course: This is a 61-year-old patient follows with Dr. Mejia from cardiology. Patient chronic stable medical conditions include GERD, hyperlipidemia, osteoarthritis, hiatal hernia, anxiety depression. Patient is on Coumadin patient's had at least 2 or 3 DVTs and associated PE. Patient had a cardiac catheterization about [address] Mejia had didn't have much of her disease and then about 14 months ago had another cardiac catheterization showing about 50% lesion. for one week patient does have having frequent chest pains central, pressure-like more so with exertion sometimes is associated with dizziness,, sweating, a feeling of sometimes of nearly passing out ,present for variable amounts hence patient is admitted with unstable angina. Patient underwent a cardiac catheterization today. Found to have 50% RCA stenosis. Patient will have medical management. We will add a small dose of Imdur. On examination: Lungs are clear, cardiovascular first seconds are normal Plan - Discharge Summary New Discharge Prescriptions: New Isosorbide Mononitrate ER [Imdur] 15 mg PO DAILY #30 dose Continue Allopurinol [Zyloprim] 300 mg PO DAILY Gabapentin 300 mg PO HS Aspirin [Aspirin EC] 81 mg PO DAILY Atorvastatin Calcium [Lipitor] 40 mg PO DAILY #30 tab Nitroglycerin Sl Tabs [Nitrostat] 0.4 mg SUBLINGUAL Q5M PRN #30 tab PRN Reason: Chest Pain Omeprazole 20 mg PO DAILY Metoprolol Tartrate [Lopressor] 50 mg PO BID #60 tab Warfarin [Coumadin] 3.75 mg PO SUTUTHSA Warfarin [Coumadin] 7.5 mg PO MOWEFR Discontinued Ibuprofen [Motrin] 400 mg PO Q6HR PRN PRN Reason: Pain Discharge Medication List Allopurinol [Zyloprim] 300 mg PO DAILY 01/12/15 [History] Aspirin [Aspirin EC] 81 mg PO DAILY 01/12/15 [History] Gabapentin 300 mg PO HS 01/12/15 [History] Atorvastatin Calcium [Lipitor] 40 mg PO DAILY #30 tab 03/12/15 [Rx] Nitroglycerin Sl Tabs [Nitrostat] 0.4 mg SUBLINGUAL Q5M PRN #30 tab 01/14/15 [Rx ] Omeprazole 20 mg PO DAILY 03/05/16 [History] Metoprolol Tartrate [Lopressor] 50 mg PO BID #60 tab 03/09/16 [Rx] Warfarin [Coumadin] 3.75 mg PO SUTUTHSA 02/27/17 [History] Warfarin [Coumadin] 7.5 mg PO MOWEFR 02/27/17 [History] Isosorbide Mononitrate ER [Imdur] 15 mg PO DAILY #30 dose 05/09/17 [Rx] Follow up Appointment(s)/Referral(s): Geni Sharif MD [Primary Care Provider] - 1 Week Abundio Mejia MD [STAFF PHYSICIAN] - 1 Week
[2017-05-09 17:38] VITALS: BP 125/73; PULSE 68
== END 2017-05-09 20:19 | disposition home or self-care (01) ==
LOC: EC 09:49 → 3OBS 11:17
PROVIDERS: ADMIT Hospitalist; ATTEND Hospitalist
DX: I25.110 Atherosclerotic heart disease of native coronary artery with unstable angina pectoris (principal); N20.0 Calculus of kidney; K21.9 Gastro-esophageal reflux disease without esophagitis; I34.1 Nonrheumatic mitral (valve) prolapse; F41.9 Anxiety disorder, unspecified; F32.9 Major depressive disorder, single episode, unspecified; K44.9 Diaphragmatic hernia without obstruction or gangrene; E78.5 Hyperlipidemia, unspecified; M19.91 Primary osteoarthritis, unspecified site; Z79.82 Long term (current) use of aspirin; Z79.899 Other long term (current) drug therapy; Z79.01 Long term (current) use of anticoagulants; Z88.3 Allergy status to other anti-infective agents; Z88.5 Allergy status to narcotic agent; Z91.018 Allergy to other foods; Z86.718 Personal history of other venous thrombosis and embolism; Z86.711 Personal history of pulmonary embolism; Z87.891 Personal history of nicotine dependence; Z82.49 Family history of ischemic heart disease and other diseases of the circulatory system
CPT/HCPCS: 36415; 93005; 93458; 80061; 80053; 82550; 82553; 83735; 84484; 85025; 85610 ×2; 85730; 71020; 99285; G0378 ×2; C1769 ×3; C1894; J2001; J2250; J1170; J1200; J2930; J2405; J1644; Q9967

== ENCOUNTER 2017-05-11 07:22 | Day surgery (SDC) | payer BC ==
[2017-05-11] MEDS ORDERED: ALPRAZolam 0.5 MG TAB PO PRN (08:01)
[2017-05-11] MEDS ORDERED: NITROGLYCERIN SL TABS 0.4 MG TAB SUBLINGUAL PRN ×2 (08:01→11:27)
[2017-05-11] MEDS ORDERED: ALPRAZolam 0.25 MG TAB PO PRN (08:01)
[2017-05-11] MEDS ORDERED: SODIUM CHLORIDE 0.9% 1,000 ML in EMPTY BAG 1 BAG IV ONE (08:01)
[2017-05-11] MEDS ORDERED: ASPIRIN 325 MG TAB PO STA (08:02)
[2017-05-11] MEDS ORDERED: ATORVASTATIN 80 MG TAB PO STA (08:02)
[2017-05-11] MEDS ORDERED: ASPIRIN 81 MG CHEW ONE (09:48)
[2017-05-11] MEDS ORDERED: LIDOCAINE 2% INJ 20 MG/ML (20 ML MDV) ONE (10:35)
[2017-05-11] MEDS ORDERED: diphenhydrAMINE 50 MG/ML 1 ML VIAL ONE (10:39)
[2017-05-11] MEDS ORDERED: methylPREDNISolone SOD SUCCI 125 MG/2 ML VIAL ONE (10:39)
[2017-05-11] MEDS ORDERED: MIDAZOLAM 2 MG/2 ML VIAL ONE ×2 (10:39→11:03)
[2017-05-11 10:46] LABS: INR 1.2 (<1.1); Prothrombin Time 11.9 sec (9.0-12.0)
[2017-05-11] MEDS ORDERED: methylPREDNISolone SOD SUCCI 125 MG/2 ML VIAL IV ONE (10:48)
[2017-05-11] MEDS ORDERED: LIDOCAINE 2% INJ 20 MG/ML SQ ONE (10:48)
[2017-05-11] MEDS ORDERED: diphenhydrAMINE 50 MG/ML 1 ML VIAL IVP ONE (10:48)
[2017-05-11] MEDS ORDERED: MIDAZOLAM 2 MG/2 ML VIAL IVP ONE (10:49)
[2017-05-11] MEDS ORDERED: BIVALIRUDIN BOLUS 250 MG/50 ML IV ONE (10:52)
[2017-05-11] MEDS ORDERED: BIVALIRUDIN 250 MG in SODIUM CHLORIDE 0.9% 35 ML IV ONE (10:54)
[2017-05-11] MEDS ORDERED: MIDAZOLAM 2 MG/2 ML VIAL IV ONE (11:04)
[2017-05-11] MEDS: NITROGLYCERIN 1000MCG/10ML SYRINGE INTRACORON ONE ×3 (11:10→11:23)
[2017-05-11] MEDS ORDERED: CLOPIDOGREL 75 MG TAB ONE ×2 (11:16)
[2017-05-11] MEDS ORDERED: CLOPIDOGREL 75 MG TAB PO ONE (11:18)
[2017-05-11] MEDS ORDERED: IOHEXOL 350 MG/ML 125ML BOTTLE INJ ONE (11:25)
[2017-05-11] MEDS ORDERED: ATROPINE SULFATE 0.1 MG/ML 10ML SYRINGE IV PRN (11:27)
[2017-05-11] MEDS ORDERED: ZOLPIDEM 5 MG TAB PO PRN (11:27)
[2017-05-11] MEDS ORDERED: MAG HYDROX/AL HYDROX/SIMETH 30 ML CUP PO PRN (11:27)
[2017-05-11] MEDS ORDERED: RX INFO: IV CONTRAST WAS GIVEN 1 EACH MISC MISCELLANE PRN (11:27)
[2017-05-11] MEDS ORDERED: SODIUM CHLORIDE 0.9% 1,000 ML IV SCH (11:30)
[2017-05-11] MEDS ORDERED: HYDROmorphone 1 MG/ML 1 ML SYRINGE IVP STA (14:24)
[2017-05-11] MEDS ORDERED: LORazepam 2 MG/ML SYRINGE IV STA (14:25)
[2017-05-11] MEDS ORDERED: WARFARIN 7.5 MG TAB PO SCH (18:00)
[2017-05-11] MEDS: METOPROLOL TARTRATE 50 MG TAB PO SCH (20:21)
[2017-05-11] MEDS ORDERED: GABAPENTIN 300 MG CAP PO SCH (21:00)
[2017-05-12 01:28] VITALS: RESP 16
[2017-05-12 06:37] LABS: Basophils % (A) 0 %; CH 31.5; CHCM 33.8; Eosinophils # (A) 0.1 k/uL (0-0.7); Eosinophils % (A) 1 %; HDW 3.02; HGB 14.3 gm/dL (13.0-17.5); Luc % (Auto) 2; Lymphocytes # (A) 1.3 k/uL (1.0-4.8); Lymphocytes % (A) 8 %; MCH 32.1 pg (25.0-35.0); MCHC 34.1 g/dL (31.0-37.0); MCV 93.9 fL (80.0-100.0); Mean Platelet Volume 6.5; Monocytes # (A) 0.9 k/uL (0-1.0); Monocytes % (A) 6 %; Neutrophils % (A) 83 %; RBC 4.47 m/uL (4.30-5.90); RDW 14.9 % (11.5-15.5); WBC 15.7 k/uL (3.8-10.6)
[2017-05-12 06:46] LABS: Anion Gap 10 mmol/L; Blood Urea Nitrogen 18 mg/dL (9-20); Calcium 9.1 mg/dL (8.4-10.2); Carbon Dioxide 24 mmol/L (22-30); Chloride 107 mmol/L (98-107); Glucose 81 mg/dL (74-99); Non-African American GFR(MDRD) >60 (>60 ml/min/1.73 sqM); Potassium 4.7 mmol/L (3.5-5.1); Sodium 141 mmol/L (137-145)
[2017-05-12] MEDS ORDERED: PANTOPRAZOLE 40 MG TABLET PO SCH (07:30)
[2017-05-12] MEDS: METOPROLOL TARTRATE 50 MG TAB PO SCH (08:53)
[2017-05-12] MEDS ORDERED: ATORVASTATIN 40 MG TAB PO SCH (09:00)
[2017-05-12] MEDS ORDERED: CLOPIDOGREL 75 MG TAB PO SCH (09:00)
[2017-05-12] MEDS ORDERED: ASPIRIN 81 MG CHEW PO SCH (09:00)
[2017-05-12] MEDS ORDERED: ASPIRIN 325 MG TAB PO SCH (09:00)
[2017-05-12] MEDS ORDERED: ALLOPURINOL 300 MG TAB PO SCH (09:00)
[2017-05-12 10:59] VITALS: BP 136/61; PULSE 89; TEMP 95.7
--- NOTE | 2017-05-12 12:03 | PTCA ---
PERCUTANEOUS CORONARY INTERVENTION DATE OF SERVICE: 05/11/2017 PERFORMING PHYSICIAN: Abundio Mejia MD, centrifugal extractor operator. PROCEDURE PERFORMED: 1. Selective right coronary artery angiogram. 2. Intravascular ultrasound (IVUS) of the right coronary artery. 3. Successful stenting of the mid right coronary artery using 3.25 x 15 mm Xience CHELLY with a good angiographic result. 4. Successful stenting of the distal right coronary artery using 3.5 x 12 mm Xience CHELLY with a good angiographic result. INDICATIONS: This is a pleasant 61-year-old gentleman who is known to have coronary artery disease who is known to have intermediate disease involving the distal right coronary artery presented to the hospital with chest discomfort. He has been experiencing intermittent episodes of chest discomfort over the last several days. He is known to have CAD involving the right coronary artery with an FFR was performed in 2014 and came in to be 0.86 of the lesion of the RCA. He underwent a heart catheterization 2 days ago and that showed intermediate lesion seems to be unchanged compared to before of the distal right coronary artery, but the mid RCA has a lesion concerning for spontaneous dissection. He was brought today to undergo an IVUS of the RCA. COMPLICATION: None. LEVEL OF SEDATION: Moderate. APPROACH: Right common femoral artery. PROCEDURE DESCRIPTION: After obtaining an informed consent, the patient was brought to the cardiac labourers. The right common femoral artery was cannulated using micropuncture technique. The micropuncture wire passed easily and I place 6 Divehi sheath in the right common femoral artery. At that point, anticoagulation was initiated using Angiomax. Subsequently, the RCA was engaged using JR4 guiding catheter. The RCA was wired using a whisper wire. After that I did intravascular ultrasound of the right coronary artery and the intravascular ultrasound showed what seems to be tight lesion of the distal right coronary artery with minimal luminal area of 3.8 sq mm. For the lesion in the mid RCA, it showed very concerning plaque morphology with an eccentric lesion and minimal luminal area of about [address] how the lesion looks like was quite concerning and I decided to stent that lesion. I did stent the distal right coronary artery using Xience 3.5 x 12 mm stent where the stent was positioned under fluoroscopic guidance and deployed under its nominal pressure. For the lesion in the mid RCA, I stented it using 3.25 x 15 mm Xience CHELLY again where the stent was positioned under fluoroscopic guidance and deployed under its nominal pressure. The following angiogram showed good angiographic results without perforation and without dissection with a good flow. POSTPROCEDURE MANAGEMENT WILL BE: 1. Dual antiplatelet therapy. 2. Risk factor modification. 3. Follow up with the patient. GASTON
[2017-05-12] MEDS ORDERED: WARFARIN 7.5 MG TAB PO SCH (18:00)
--- NOTE | 2017-05-15 05:00 | DS ---
ADMISSION DATE: 05/11/2017 DISCHARGE DATE: 05/12/2017 BRIEF HISTORY: This a pleasant 61-year-old gentleman who was admitted to the hospital and underwent and intravascular ultrasound, IVUS, of the right coronary artery along with successful stenting of the mid and distal right coronary artery with a good angiographic results and without any complication. The procedure was performed from the right groin. The right groin is soft and nontender and without any bruises. The patient is going to be discharged home on dual antiplatelet therapy and I will follow up with the patient as an outpatient in the office. GASTON
== END 2017-05-12 11:42 | disposition home or self-care (01) ==
LOC: CATHCVL 07:22 → 6SEL 11:27 → CATHCVL 05-12 11:42
PROVIDERS: ATTEND Internal Medicine Interventional Cardiology
DX: I25.10 Atherosclerotic heart disease of native coronary artery without angina pectoris (principal); R07.89 Other chest pain; E78.5 Hyperlipidemia, unspecified; I10 Essential (primary) hypertension; Z86.718 Personal history of other venous thrombosis and embolism; Z79.01 Long term (current) use of anticoagulants; Z79.82 Long term (current) use of aspirin; Z79.899 Other long term (current) drug therapy; Z88.5 Allergy status to narcotic agent; Z91.09 Other allergy status, other than to drugs and biological substances; Z87.891 Personal history of nicotine dependence
CPT/HCPCS: 92978; 80048; 85025; 85610; 99152; 99153; C9600; C1769 ×4; C1887; C1894; C1725; C1753; C1874; J2001; J2250; J2060; J1200; J2930; J1170; J0583; Q9967

== ENCOUNTER 2019-08-27 17:52 | Inpatient (IN) | payer BC ==
--- NOTE | 2019-08-27 18:24 | ED ---
Chest Pain HPI - General Chief Complaint: Chest Pain Stated Complaint: Chest pain Time Seen by Provider: 08/27/19 18:04 Source: patient, RN notes reviewed Mode of arrival: ambulatory Limitations: no limitations - History of Present Illness Initial Comments: This a 64-year-old male presents emergency Department chief complaint chest pain. Patient states it's centralized chest pain. He states initially was just related to his his hiatal hernia. Patient states he normally just takes Ativan if symptoms light. Patient states that symptoms do not improve. He states they have worsened when he was having intercourse with his . He states it which the point where he had a stop. He states he woke up the next day and symptoms are still present. Patient states that any activity makes symptoms worse and which gets increasing pain, dyspnea. Patient states that the symptoms resolved after about 10-15 minutes to sit down. He denies any leg swelling, leg pain. Patient does take Coumadin from history of PE, DVT. Patient states his INR as well as related. Patient had stents placed a little over [address] Mejia - Related Data Home Medications Medication Instructions Recorded Confirmed Allopurinol [Zyloprim] 300 mg PO DAILY 01/12/15 08/27/19 Aspirin [Aspirin EC] 81 mg PO DAILY 01/12/15 08/27/19 Omeprazole 20 mg PO DAILY 03/05/16 08/27/19 Warfarin [Coumadin] 3.75 mg PO MOWEFR 02/27/17 08/27/19 Warfarin [Coumadin] 7.5 mg PO SUTUTHSA 02/27/17 08/27/19 LORazepam [Ativan] 0.5 mg PO BID PRN 08/27/19 08/27/19 Metoprolol Tartrate [Lopressor] 37.5 mg PO BID 08/27/19 08/27/19 Previous Rx's Medication Instructions Recorded Atorvastatin Calcium [Lipitor] 40 mg PO DAILY #30 tab 01/14/15 Clopidogrel [Plavix] 75 mg PO DAILY #90 tab 05/12/17 Allergies Allergy/AdvReac Type Severity Reaction Status Date / Time watermelon Allergy Wheezing/hi Verified 08/27/19 18:09 ves codeine AdvReac "LOOPY" Verified 08/27/19 18:09 Iodine and Iodide Containing AdvReac flushed, Verified 08/27/19 18:09 Produc nitroglycerin AdvReac vertigo/yasmin Verified 08/27/19 18:09 [From Nitrostat] celsa Review of Systems ROS Statement: Those systems with pertinent positive or pertinent negative responses have been documented in the HPI. ROS Other: All systems not noted in ROS Statement are negative. EKG Findings - EKG Comments: EKG Findings:: EKG performed at 18:10 normal sinus rhythm rate of 71. 162 QRS 86 QT/QTC 404/439 Past Medical History Past Medical History: Asthma, Chest Pain / Angina, Deep Vein Thrombosis (DVT), GERD/Reflux, Hyperlipidemia, Mitral Valve Prolapse (MVP), Osteoarthritis (OA), Pulmonary Embolus (PE), Thyroid Disorder Additional Past Medical History / Comment(s): Bilateral leg DVT's, PE R lung about 10 yrs ago, old healed gastric ulcer, hiatal hernia, asthma as a child, DDD neck and back-sciatica, migraines with vertigo, starting of bilateral cataracts, overactive thyroid. History of Any Multi-Drug Resistant Organisms: None Reported Past Surgical History: Heart Catheterization, Heart Catheterization With Stent, Orthopedic Surgery Additional Past Surgical History / Comment(s): skiing accident with splenectomy 1972, L Knee surgery 1971 d/t cystic degeneration, Kidney stones removed 3 times, EGD with bx, colonoscopy x 2. Past Anesthesia/Blood Transfusion Reactions: No Reported Reaction, Motion Sickness Past Psychological History: Anxiety, Depression Smoking Status: Former smoker Past Alcohol Use History: Daily, Heavy Past Drug Use History: None Reported - Past Family History Father Family Medical History: Chest Pain / Angina, CVA/TIA, Hyperlipidemia Additional Family Medical History / Comment(s): Quad bypass, Heart attack x2. Father at the age of 77yrs. Mother Family Medical History: Congestive Heart Failure (CHF), Myocardial Infarction (PR) Additional Family Medical History / Comment(s): Mother at the age of 85yrs. General Exam Limitations: no limitations General appearance: alert, in no apparent distress Head exam: Present: atraumatic, normocephalic, normal inspection Eye exam: Present: normal appearance, PERRL, EOMI. Absent: scleral icterus, conjunctival injection, periorbital swelling ENT exam: Present: normal exam, normal oropharynx, mucous membranes moist Neck exam: Present: normal inspection, full ROM. Absent: tenderness, meningismus, lymphadenopathy Respiratory exam: Present: normal lung sounds bilaterally. Absent: respiratory distress, wheezes, rales, rhonchi, stridor Cardiovascular Exam: Present: regular rate, normal rhythm, normal heart sounds. Absent: systolic murmur, diastolic murmur, rubs, gallop, clicks GI/Abdominal exam: Present: soft, normal bowel sounds. Absent: distended, tenderness, guarding, rebound, rigid Back exam: Absent: CVA tenderness (R), CVA tenderness (L) Neurological exam: Present: alert, oriented X3 Skin exam: Present: warm, dry, intact, normal color. Absent: rash Course Vital Signs 08/27/19 08/27/19 08/27/19 17:56 18:12 18:23 Temperature 98.7 F Pulse Rate 81 66 Pulse Rate [ 67 Powerhouse Attendant ] Respiratory 18 18 Rate Blood Pressure 146/96 157/97 O2 Sat by Pulse 97 96 Oximetry 08/27/19 19:18 Temperature 98.4 F Pulse Rate 76 Pulse Rate [ Powerhouse Attendant ] Respiratory 17 Rate Blood Pressure 155/94 O2 Sat by Pulse 97 Oximetry Chest Pain MDM - MDM Laboratory is unremarkable does show therapeutic INR 2.7, d-dimer is negative chest x-ray unremarkable EKG shows no acute changes. Patient will be admitted for chest pain observation, echo, repeat troponin and cardiology evaluation Disposition Clinical Impression: Chest pain, Exertional dyspnea Disposition: ADMITTED IP TO THIS HOSP Condition: Fair Referrals: Geni Sharif MD [Primary Care Provider] - 1-2 days
[2019-08-27 18:32] LABS: Basophils # (A) 0.1 k/uL (0-0.2); Basophils % (A) 1 %; Eosinophils # (A) 0.5 k/uL (0-0.7); Eosinophils % (A) 6 %; HCT 41.7 % (39.0-53.0); HGB 14.2 gm/dL (13.0-17.5); Lymphocytes # (A) 2.5 k/uL (1.0-4.8); Lymphocytes % (A) 26 %; MCH 32.6 pg (25.0-35.0); MCHC 34.1 g/dL (31.0-37.0); MCV 95.6 fL (80.0-100.0); Mean Platelet Volume 6.1; Monocytes # (A) 0.6 k/uL (0-1.0); Monocytes % (A) 6 %; Neutrophils # (A) 5.4 k/uL (1.3-7.7); Neutrophils % (A) 57 %; Platelet Count 412 k/uL (150-450); RBC 4.37 m/uL (4.30-5.90); RDW 14.7 % (11.5-15.5); WBC 9.4 k/uL (3.8-10.6)
--- NOTE | 2019-08-27 18:38 | XR ---
EXAMINATION TYPE: XR chest 2V DATE OF EXAM: 08/27/2019 COMPARISON: 05/08/2017 HISTORY: Chest pain TECHNIQUE: Frontal and lateral views of the chest are obtained. FINDINGS: Heart and mediastinum are normal. Lungs are clear. Diaphragm is normal. Bony thorax is int act. IMPRESSION: Normal chest. No change.
[2019-08-27 18:45] LABS: D-Dimer <0.17 mg/L FEU (<0.60); INR 2.7 (<1.2); Partial Thromboplastin Time 31.6 sec (22.0-30.0); Prothrombin Time 26.5 sec (9.0-12.0)
[2019-08-27 18:49] LABS: ALT 29 U/L (21-72); AST 29 U/L (17-59); African American GFR (CKD) >90 (>60 ml/min/1.73 sqM); Albumin 4.3 g/dL (3.5-5.0); Alkaline Phosphatase 82 U/L (38-126); Anion Gap 9 mmol/L; Blood Urea Nitrogen 16 mg/dL (9-20); Calcium 9.6 mg/dL (8.4-10.2); Carbon Dioxide 24 mmol/L (22-30); Chloride 107 mmol/L (98-107); Glucose 89 mg/dL (74-99); Magnesium 1.7 mg/dL (1.6-2.3); Sodium 140 mmol/L (137-145); Total Bilirubin 0.6 mg/dL (0.2-1.3); Total Protein 6.8 g/dL (6.3-8.2)
[2019-08-27] MEDS ORDERED: HEPARIN SODIUM,PORCINE 5,000 UNIT/ML 1 ML VIAL IV ONE (19:20)
[2019-08-27] MEDS ORDERED: HEPARIN SOD,PORK IN 0.45% NACL 25,000 UNIT in 0.45% NACL 1 250ML.BAG IV SCH (19:30)
[2019-08-27] MEDS ORDERED: WARFARIN 7.5 MG TAB PO SCH (20:30)
[2019-08-27] MEDS: METOPROLOL TARTRATE 25 MG TAB PO SCH (20:39)
[2019-08-28 06:10] LABS: Cholesterol 127 mg/dL (<200); HDL Cholesterol 45 mg/dL (40-60); LDL Cholesterol,Calculated 38 mg/dL (0-99); Triglycerides 221 mg/dL (<150)
[2019-08-28] MEDS ORDERED: CLOPIDOGREL 75 MG TAB PO SCH (09:00)
[2019-08-28] MEDS ORDERED: ASPIRIN 325 MG TAB PO SCH (09:00)
[2019-08-28 09:23] LABS: INR 2.6 (<1.2)
[2019-08-28] MEDS: ATORVASTATIN 40 MG TAB PO SCH (09:53)
[2019-08-28] MEDS: PANTOPRAZOLE 40 MG TABLET PO SCH (09:53)
[2019-08-28] MEDS: ASPIRIN 81 MG PO SCH (09:53)
[2019-08-28] MEDS: ALLOPURINOL 300 MG TAB PO SCH (09:53)
[2019-08-28] MEDS: METOPROLOL TARTRATE 25 MG TAB PO SCH ×2 (10:07→20:16)
[2019-08-28] MEDS ORDERED: SODIUM CHLORIDE 0.9% 1,000 ML in EMPTY BAG 1 BAG IV ONE (10:09)
--- NOTE | 2019-08-28 11:38 | P.CRDCN ---
History of Present Illness History of present illness: This is a pleasant 64-year-old male past medical history significant for coronary artery disease status post stent placement to the RCA in 2017, history of DVT and PE in the past maintained on Coumadin, dyslipidemia, gout and gastroesophageal reflux disease with hiatal hernia. He follows in the office with Dr. Mejia. He has been experiencing a tight burning sensation in the mid sternal region intermittently since Sunday. Initially he attributed his symptoms to his hiatal hernia however his [id number] antacids weren't improving his symptoms and then starting on Sunday he started noticing his symptoms were intensified and exacerbated by activity. Sitting at rest he felt no symptoms of chest discomfort or shortness of breath. On Sunday his symptoms continued to be exertional prompting him to start checking his blood pressures at home. His blood pressures were intermittently elevated which is abnormal for him. He also takes Ativan at home for anxiety and was attempting to take this thinking that this would possibly be related to anxiety however he continued to have exertional chest discomfort. He is seen and examined resting comfortably in bed in no acute distress. EKG reveals sinus mechanism with no acute ST or T-wave abnormalities heart rate of 71. Chest x-ray is negative for an acute cardiopulmonary process. Laboratory data reviewed, CBC unremarkable, INR 2.6, sodium 140, potassium 4.0, creatinine 1.01 with a GFR 78, cardiac enzymes negative 3, proBNP 132, LDL 38. Current cardiac medications include Coumadin, aspirin 81 mg daily, Plavix 75 mg daily, Lopressor 37.5 mg twice a day. Most recent echocardiogram obtained in the office July 2019 revealed preserved LV systolic function with ejection fraction 55% and normal diastolic function. At the time of my exam: CONSTITUTIONAL: Denies fever. Denies chills. EYES: Denies blurred vision. Denies vision changes. Denies eye pain. EARS, NOSE, MOUTH & THROAT: Denies headache. Denies sore throat. Denies ear pain. CARDIOVASCULAR: Denies chest pain. Denies shortness of breath. Denies orthopnea. Denies PND. Denies palpitations. RESPIRATORY: Denies cough. GASTROINTESTINAL: Denies abdominal pain. Denies diarrhea. Denies constipation. Denies nausea. Denies vomiting. MUSCULOSKELETAL: Denies myalgias. INTEGUMENTARY: Denies pruitis. Denies rash. NEUROLOGIC: Denies numbness. Denies tingling. Denies weakness. PSYCHIATRIC: Denies anxiety. Denies depression. ENDOCRINE: Denies fatigue. Denies weight change. Denies polydipsia. Denies polyurina. GENITOURINARY: Denies burning, hematuria or urgency with micturation. HEMATOLOGIC: Denies history of anemia. Denies bleeding. Blood pressure 129/83 heart rate 68 afebrile maintaining oxygen saturation on room air GENERAL: This is a 64-year-old male in no apparent distress at the time of my examination. HEENT: Head is atraumatic, normocephalic. Pupils are equal, round. Sclerae anicteric. Conjunctivae are clear. Mucous membranes of the mouth are moist. Neck is supple. There is no jugular venous distention. No carotid bruit is heard. LUNGS: Clear to auscultation no wheezes, rales or rhonchi. No chest wall tenderness is noted on palpation or with deep breathing. HEART: Regular rate and rhythm without murmurs, rubs or gallops. S1 and S2 heard. ABDOMEN: Soft, nontender. Bowel sounds are heard. No organomegaly noted. EXTREMITIES: No evidence of peripheral edema and no calf tenderness noted. VASCULAR: Radial and dorsalis pedis pulses palpated, no evidence of clubbing. NEUROLOGIC: Patient is awake, alert and oriented x3. ASSESSMENT Unstable angina Coronary artery disease s/p stent placement to the mid and distal RCA 2016 History of DVT and PE maintained on coumadin Dyslipidemia Hiatal hernia PLAN Recommend proceeding with cardiac catheterization. I have discussed the risks, benefits and alternative therapies for the above-mentioned procedure and for both sedation/analgesia as well as necessary blood product administration, if indicated, as they pertain to this patient. The patient has indicated understanding and acceptance of the risks and procedures discussed. Questions have been answered appropriately and he is agreeable to undergo above stated procedure. INR is 2.6, coumadin last dose was last evening. Tonights dose will be held and repeat INR in the morning. Tentatively scheduled for tomorrow af ternoon with Dr. Mejia pending INR. Further recommendations to follow based on catheterization findings. Thank you kindly for this consultation. Nurse Practitioner note has been reviewed, I agree with a documented findings and plan of care. Patient was seen and examined. Past Medical History Past Medical History: Asthma, Chest Pain / Angina, Deep Vein Thrombosis (DVT), GERD/Reflux, Hyperlipidemia, Mitral Valve Prolapse (MVP), Osteoarthritis (OA), Pulmonary Embolus (PE), Thyroid Disorder Additional Past Medical History / Comment(s): Bilateral leg DVT's, PE R lung about 10 yrs ago, old healed gastric ulcer, hiatal hernia, asthma as a child, DDD neck and back-sciatica, migraines with vertigo, starting of bilateral cataracts, overactive thyroid. History of Any Multi-Drug Resistant Organisms: None Reported Past Surgical History: Heart Catheterization, Heart Catheterization With Stent, Orthopedic Surgery Additional Past Surgical History / Comment(s): skiing accident with splenectomy 1972, L Knee surgery 1971 d/t cystic degeneration, Kidney stones removed 3 times, EGD with bx, colonoscopy x 2. Past Anesthesia/Blood Transfusion Reactions: No Reported Reaction, Motion Sickness Date of Last Stent Placement:: 2016 Past Psychological History: Anxiety, Depression Additional Psychological History / Comment(s): Pt states he has alot of anxiety and has ativan which he uses infrequently. He is independent. Smoking Status: Never smoker Past Alcohol Use History: Daily, Heavy Additional Past Alcohol Use History / Comment(s): Smoke for 10 years stopped in 1988, drinks about 4 ounces of alcohol a day that is [employer] , lives with his , Past Drug Use History: None Reported - Past Family History Father Family Medical History: Chest Pain / Angina, CVA/TIA, Hyperlipidemia Additional Family Medical History / Comment(s): Quad bypass, Heart attack x2. Father at the age of 77yrs. Mother Family Medical History: Congestive Heart Failure (CHF), Myocardial Infarction ([place]) Additional Family Medical History / Comment(s): Mother at the age of 85yrs. Medications and Allergies Home Medications Medication Instructions Recorded Confirmed Type Allopurinol [Zyloprim] 300 mg PO DAILY 01/12/15 08/27/19 History Aspirin [Aspirin EC] 81 mg PO DAILY 01/12/15 08/27/19 History Atorvastatin Calcium [Lipitor] 40 mg PO DAILY #30 tab 01/14/15 08/27/19 Rx Omeprazole 20 mg PO DAILY 03/05/16 08/27/19 History Warfarin [Coumadin] 3.75 mg PO MOWEFR 02/27/17 08/27/19 History Warfarin [Coumadin] 7.5 mg PO SUTUTHSA 02/27/17 08/27/19 History Clopidogrel [Plavix] 75 mg PO DAILY #90 tab 05/12/17 08/27/19 Rx LORazepam [Ativan] 0.5 mg PO BID PRN 08/27/19 08/27/19 History Metoprolol Tartrate [Lopressor] 37.5 mg PO BID 08/27/19 08/27/19 History Allergies Allergy/AdvReac Type Severity Reaction Status Date / Time watermelon Allergy Wheezing/hi Verified 08/27/19 18:09 ves codeine AdvReac "LOOPY" Verified 08/27/19 18:09 Iodine and Iodide Containing AdvReac flushed, Verified 08/27/19 18:09 Produc nitroglycerin AdvReac vertigo/yasmin Verified 08/27/19 18:09 [From Nitrostat] celsa Physical Exam Vitals: Vital Signs Temp Pulse Pulse Pulse Resp BP BP 08/28/19 07:52 98.3 F 68 18 08/28/19 04:00 97.8 F 62 18 08/28/19 03:14 64 18 08/28/19 00:00 97.6 F 66 18 118/74 08/27/19 23:30 64 18 08/27/19 20:48 70 70 08/27/19 20:43 98.4 F 65 18 163/92 08/27/19 19:18 98.4 F 76 17 155/94 08/27/19 18:23 66 18 157/97 08/27/19 18:12 67 08/27/19 17:56 98.7 F 81 18 146/96 BP Pulse Ox 08/28/19 07:52 129/83 97 08/28/19 04:00 139/73 96 08/28/19 03:14 08/28/19 00:00 96 08/27/19 23:30 08/27/19 20:48 08/27/19 20:43 99 08/27/19 19:18 97 08/27/19 18:23 96 08/27/19 18:12 08/27/19 17:56 97 Intake and Output 08/27/19 08/28/19 08/28/19 22:59 06:59 14:59 Intake Total 480 Balance 480 Intake: Oral 480 Other: # Voids 1 1 Weight 77.111 kg Results 08/27/19 18:21 08/27/19 18:21 Cardiac Enzymes 08/27/19 08/27/19 08/28/19 Range/Units 18:21 18:21 00:12 AST 29 (17-59) U/L Troponin I <0.012 <0.012 (0.000-0.034) ng/mL 08/28/19 Range/Units 05:42 AST (17-59) U/L Troponin I <0.012 (0.000-0.034) ng/mL Coagulation 08/27/19 Range/Units 18:21 PT 26.5 H (9.0-12.0) sec APTT 31.6 H (22.0-30.0) sec Lipids 08/28/19 Range/Units 05:42 Triglycerides 221 H (<150) mg/dL Cholesterol 127 (<200) mg/dL HDL Cholesterol 45 (40-60) mg/dL CBC 08/27/19 Range/Units 18:21 WBC 9.4 (3.8-10.6) k/uL RBC 4.37 (4.30-5.90) m/uL Hgb 14.2 (13.0-17.5) gm/dL Hct 41.7 (39.0-53.0) % Plt Count 412 (150-450) k/uL Comprehensive Metabolic Panel 08/27/19 Range/Units 18:21 Sodium 140 (137-145) mmol/L Potassium 4.0 (3.5-5.1) mmol/L Chloride 107 (98-107) mmol/L Carbon Dioxide 24 (22-30) mmol/L BUN 16 (9-20) mg/dL Creatinine 1.01 (0.66-1.25) mg/dL Glucose 89 (74-99) mg/dL Calcium 9.6 (8.4-10.2) mg/dL AST 29 (17-59) U/L ALT 29 (21-72) U/L Alkaline Phosphatase 82 (38-126) U/L Total Protein 6.8 (6.3-8.2) g/dL Albumin 4.3 (3.5-5.0) g/dL Current Medications Generic Name Dose Route Start Last Admin Trade Name Freq PRN Reason Stop Dose Admin Allopurinol 300 mg 08/28/19 09:00 Zyloprim PO DAILY MICHAEL Aspirin 325 mg 08/28/19 09:00 Aspirin PO DAILY [facility] Atorvastatin Calcium 40 mg 08/28/19 09:00 Lipitor PO DAILY [facility] Clopidogrel Bisulfate 75 mg 08/28/19 09:00 Plavix PO DAILY [facility] Lorazepam 0.5 mg 08/27/19 19:22 Ativan PO BID PRN Anxiety Metoprolol Tartrate 37.5 mg 08/27/19 21:00 08/27/19 20:39 Lopressor PO Not Given BID [facility] Pantoprazole Sodium 40 mg 08/28/19 07:30 Protonix PO AC-[id number] [facility] Warfarin Sodium 3.75 mg 08/27/19 20:30 08/27/19 20:39 Coumadin PO Not Given [email or web address] [facility] Warfarin Sodium 7.5 mg 08/28/19 18:00 Coumadin PO [email or web address] [facility] Intake and Output 08/27/19 08/28/19 08/28/19 22:59 06:59 14:59 Intake Total 480 Balance 480 Intake: Oral 480 Other: # Voids 1 1 Weight 77.111 kg 08/27/19 18:21 08/27/19 18:21
--- NOTE | 2019-08-28 11:40 | ECHOF ---
Referral Reason:chest pain MEASUREMENTS -------- HEIGHT: 172.7 cm WEIGHT: 77.1 kg BP: 139/73 RVIDd: 2.9 cm (< 3.3) IVSd: 1.0 cm (0.6 - 1.1) LVIDd: 3.9 cm (3.9 - 5.3) LVPWd: 1.0 cm (0.6 - 1.1) IVSs: 1.5 cm LVIDs: 2.5 cm LVPWs: 1.4 cm LA Diam: 3.4 cm (2.7 - 3.8) LAESV Index (A-L): 17.43 ml/m Ao Diam: 3.2 cm (2.0 - 3.7) AV Cusp: 2.6 cm (1.5 - 2.6) MV EXCURSION: 15.488 mm (> 18.000) MV EF SLOPE: 67 mm/s (70 - 150) EPSS: 0.5 cm MV E Justo: 0.60 m/s MV DecT: 263 ms MV A Justo: 0.62 m/s MV E/A Ratio: 0.98 TAPSE: 19.18 mm FINDINGS -------- Sinus rhythm. This was a technically adequate study. The left ventricular size is normal. Left ventricular wall thickness is normal. Overall left vent ricular systolic function is normal with, an EF between 60 - 65 %. The diastolic filling pattern is normal for the age of the patient 7.60. The right ventricle is normal in size. Normal LA size by volume 22+/-6 ml/m2. The right atrium is normal in size. Interatrial and interventricular septum intact. The aortic valve is trileaflet and appears structurally normal. The mitral valve is normal. The tricuspid valve appears structurally normal. There is no pulmonic regurgitation present. The aortic root size is normal. Normal inferior vena cava with normal inspiratory collapse consistent with estimated right atrial pre ssure of 5 mmHg. There is no pericardial effusion. CONCLUSIONS -------- 1. Sinus rhythm. 2. This was a technically adequate study. 3. The left ventricular size is normal. 4. Left ventricular wall thickness is normal. 5. Overall left ventricular systolic function is normal with, an EF between 60 - 65 %. 6. The diastolic filling pattern is normal for the age of the patient 7.60 7. The right ventricle is normal in size. 8. Normal LA size by volume 22+/-6 ml/m2. 9. The right atrium is normal in size. 10. Interatrial and interventricular septum intact. 11. The aortic valve is trileaflet and appears structurally normal. 12. The mitral valve is normal. 13. The tricuspid valve appears structurally normal. 14. There is no pulmonic regurgitation present. 15. The aortic root size is normal. 16. Normal inferior vena cava with normal inspiratory collapse consistent with estimated right atrial pressure of 5 mmHg. 17. There is no pericardial effusion. INTEL RECRUITER: Martha Maurer RDCS
[2019-08-28] MEDS: ISOSORBIDE MONONITRATE ER 30 MG TAB.ER.24H PO SCH (14:46)
[2019-08-28] MEDS: ACETAMINOPHEN TAB 325 MG TAB PO PRN ×2 (15:17→20:52)
[2019-08-28] MEDS ORDERED: WARFARIN 7.5 MG TAB PO SCH (18:00)
--- NOTE | 2019-08-28 18:40 | P.HPIM ---
History of Present Illness H&P Date: 08/28/19 Chief Complaint: Chest pain History of presenting complaint: This is a pleasant 64-year-old patient of Dr. Margo Sharif. Oncology Specialist is Dr. Mejia. Chronic stable medical conditions include GERD, hyperlipidemia, osteoarthritis, DVTs and PE, anxiety depression. Patient has been on Coumadin for DVT and PE. In May 2017 patient underwent intravascular ultrasound of the right coronary artery and subsequently had angioplasty stenting to the RCA. Patient for about a week P spleen having anterior chest wall pain. Described more as a pressure and the leg. Associated with shortness of breath dizziness. No Symptoms Had Sometimes Coming on at Rest and Progressively Worse with Activity. It Has Been Progressively Building up to Percent on the Last 1 Week. Admitted for the Same. Diagnosed with Unstable Angina. Seen by Cardiology. Planning for Cardiac Catheterization Tomorrow. Review of systems: GEN.: Tired EYES: None HEENT: None NECK: None RESPIRATORY: None CARDIOVASCULAR: As above GASTROINTESTINAL: None GENITOURINARY: None MUSCULOSKELETAL: Joint pains LYMPHATICS: None HEMATOLOGICAL: None PSYCHIATRY: Anxiety NEUROLOGICAL: None Social history: Drinks 4 glasses off." Whiskey a day.. [employer]. . Employed. Physical examination: VITAL SIGNS: 98.7, 81, 18, 146/96, 97% GENERAL: BMI 25.8, laying in bed, not in distress]. EYES: Pupils equal. Conjunctiva normal. HEENT: External appearance of nose and ears normal, oral cavity grossly normal. NECK: JVD not raised; masses not palpable. HEART: First and second heart sounds are normal; no edema. LUNGS: Respiratory rate normal; clear to auscultation. ABDOMEN: Soft, nontender, liver spleen not palpable, no masses palpable. PSYCH: Alert and oriented x3; mood and affect normal. NEUROLOGICAL: Cranial nerves grossly intact; no facial asymmetry, power and sensation grossly intact. LYMPHATICS: No lymph nodes palpable in the axilla and neck INVESTIGATIONS, reviewed in the clinical context: White count 9.4 hemoglobin 14.2 platelets 42 potassium 4 BUN 16 creatinine 1.01 INR 2.7 LDL 38 EKG tracing personally reviewed by me-normal sinus rhythm Chest x-ray film personally reviewed by me-lung whitman clear 2-D echo-EF 60-65%, no wall motion abnormality Assessment: -Unstable angina in a patient with known coronary artery disease -Coronary artery disease with stent to the RCA in May 2017 -Chronic DVT and PE for which patient is on Coumadin -Coumadin monitoring -GERD -Hyperlipidemia -Primary osteoarthritis -Hiatal hernia - Plan: Home medications resumed. Seen by cardiology. Patient is scheduled for cardiac catheterization tomorrow. According has been held. Patient is on aspirin and Lipitor. Care was discussed with the patient. Questions were answered. Past Medical History Past Medical History: Asthma, Chest Pain / Angina, Deep Vein Thrombosis (DVT), GERD/Reflux, Hyperlipidemia, Mitral Valve Prolapse (MVP), Osteoarthritis (OA), Pulmonary Embolus (PE), Thyroid Disorder Additional Past Medical History / Comment(s): Bilateral leg DVT's, PE R lung about 10 yrs ago, old healed gastric ulcer, hiatal hernia, asthma as a child, DDD neck and back-sciatica, migraines with vertigo, starting of bilateral c ataracts, overactive thyroid. History of Any Multi-Drug Resistant Organisms: None Reported Past Surgical History: Heart Catheterization, Heart Catheterization With Stent, Orthopedic Surgery Additional Past Surgical History / Comment(s): skiing accident with splenectomy 1972, L Knee surgery 1971 d/t cystic degeneration, Kidney stones removed 3 times, EGD with bx, colonoscopy x 2. Past Anesthesia/Blood Transfusion Reactions: No Reported Reaction, Motion Sickness Date of Last Stent Placement:: 2016 Past Psychological History: Anxiety, Depression Additional Psychological History / Comment(s): Pt states he has alot of anxiety and has ativan which he uses infrequently. He is independent. Smoking Status: Never smoker Past Alcohol Use History: Daily, Heavy Additional Past Alcohol Use History / Comment(s): Smoke for 10 years stopped in 1988, drinks about 4 ounces of alcohol a day that is [employer] [employer] , lives with his , Past Drug Use History: None Reported - Past Family History Father Family Medical History: Chest Pain / Angina, CVA/TIA, Hyperlipidemia Additional Family Medical History / Comment(s): Quad bypass, Heart attack x2. Father at the age of 77yrs. Mother Family Medical History: Congestive Heart Failure (CHF), Myocardial Infarction ([place]) Additional Family Medical History / Comment(s): Mother at the age of 85yrs. Medications and Allergies Home Medications Medication Instructions Recorded Confirmed Type Allopurinol [Zyloprim] 300 mg PO DAILY 01/12/15 08/27/19 History Aspirin [Aspirin EC] 81 mg PO DAILY 01/12/15 08/27/19 History Atorvastatin Calcium [Lipitor] 40 mg PO DAILY #30 tab 01/14/15 08/27/19 Rx Omeprazole 20 mg PO DAILY 03/05/16 08/27/19 History Warfarin [Coumadin] 3.75 mg PO MOWEFR 02/27/17 08/27/19 History Warfarin [Coumadin] 7.5 mg PO SUTUTHSA 02/27/17 08/27/19 History Clopidogrel [Plavix] 75 mg PO DAILY #90 tab 05/12/17 Rx LORazepam [Ativan] 0.5 mg PO BID PRN 08/27/19 08/27/19 History Metoprolol Tartrate [Lopressor] 37.5 mg PO BID 08/27/19 08/27/19 History Allergies Allergy/AdvReac Type Severity Reaction Status Date / Time watermelon Allergy Wheezing/hi Verified 08/27/19 18:09 ves codeine AdvReac "LOOPY" Verified 08/27/19 18:09 Iodine and Iodide Containing AdvReac flushed, Verified 08/27/19 18:09 Produc nitroglycerin AdvReac vertigo/yasmin Verified 08/27/19 18:09 [From Nitrostat] celsa Physical Exam Vitals: Vital Signs Temp Pulse Pulse Pulse Resp BP BP 08/28/19 07:52 98.3 F 68 18 08/28/19 04:00 97.8 F 62 18 08/28/19 03:14 64 18 08/28/19 00:00 97.6 F 66 18 118/74 08/27/19 23:30 64 18 08/27/19 20:48 70 70 08/27/19 20:43 98.4 F 65 18 163/92 08/27/19 19:18 98.4 F 76 17 155/94 08/27/19 18:23 66 18 157/97 08/27/19 18:12 67 08/27/19 17:56 98.7 F 81 18 146/96 BP Pulse Ox 08/28/19 07:52 129/83 97 08/28/19 04:00 139/73 96 08/28/19 03:14 08/28/19 00:00 96 08/27/19 23:30 08/27/19 20:48 08/27/19 20:43 99 08/27/19 19:18 97 08/27/19 18:23 96 08/27/19 18:12 08/27/19 17:56 97 Intake and Output 08/27/19 08/28/19 08/28/19 22:59 06:59 14:59 Intake Total 480 Balance 480 Intake: Oral 480 Other: # Voids 1 1 Weight 77.111 kg Results CBC & Chem 7: 08/27/19 18:21 08/27/19 18:21 Labs: Abnormal Lab Results - Last 24 Hours (Table) 08/27/19 08/28/19 08/28/19 Range/Units 18:21 05:42 05:43 PT 26.5 H 25.0 H (9.0-12.0) sec INR 2.7 H 2.6 H (<1.2) APTT 31.6 H (22.0-30.0) sec Triglycerides 221 H (<150) mg/dL Thrombosis Risk Factor Assmnt - Choose All That Apply Other Risk Factors: Yes Each Risk Factor Represents 2 Points: Age 61-74 years Each Risk Factor Represents 3 Points: History of DVT/PE Thrombosis Risk Factor Assessment Total Risk Factor Score: 5 Thrombosis Risk Factor Assessment Level: High Risk
[2019-08-28] MEDS: LORazepam 0.5 MG TAB PO PRN (20:16)
[2019-08-29 06:47] LABS: INR 1.9 (<1.2); Prothrombin Time 19.2 sec (9.0-12.0)
[2019-08-29] MEDS: ACETAMINOPHEN TAB 325 MG TAB PO PRN ×3 (06:48→21:13)
[2019-08-29] MEDS: ISOSORBIDE MONONITRATE ER 30 MG TAB.ER.24H PO SCH (06:49)
[2019-08-29] MEDS: METOPROLOL TARTRATE 25 MG TAB PO SCH ×2 (06:49→21:17)
[2019-08-29] MEDS: ASPIRIN 81 MG PO SCH (06:50)
[2019-08-29] MEDS: ALLOPURINOL 300 MG TAB PO SCH (06:50)
[2019-08-29] MEDS: ATORVASTATIN 40 MG TAB PO SCH (06:53)
[2019-08-29] MEDS ORDERED: MECLIZINE 25 MG TAB PO STA (08:43)
[2019-08-29] MEDS: LORazepam 0.5 MG TAB PO PRN (09:31)
[2019-08-29] MEDS: PANTOPRAZOLE 40 MG TABLET PO SCH (09:32)
[2019-08-29] MEDS: ONDANSETRON 4 MG/2 ML VIAL IVP PRN ×2 (13:41→21:17)
[2019-08-29] MEDS ORDERED: LIDOCAINE 1% INJ 10MG/ML (20 ML MDV) SQ ONE ×2 (17:38→19:38)
[2019-08-29] MEDS ORDERED: HYDROmorphone 1 MG/ML 1 ML SYRINGE IVP ONE ×3 (17:38→20:38)
[2019-08-29] MEDS ORDERED: VERAPAMIL SYRINGE (5 MG/10 ML) INTRAARTER ONE (17:39)
[2019-08-29] MEDS ORDERED: HEPARIN SODIUM 1,000 UN/ML (10ML VL) ONE (19:24)
[2019-08-29] MEDS ORDERED: VERAPAMIL 2.5 MG/ML 2 ML AMP ONE (19:25)
[2019-08-29] MEDS ORDERED: LIDOCAINE 1% INJ 10MG/ML (20 ML MDV) ONE (19:25)
[2019-08-29 19:31] VITALS: RESP 18
[2019-08-29] MEDS ORDERED: SODIUM CHLORIDE 0.9% 1,000 ML IV ONE (19:35)
[2019-08-29] MEDS: MIDAZOLAM 2 MG/2 ML VIAL IVP ONE ×2 (19:35→19:40)
[2019-08-29] MEDS ORDERED: HYDROmorphone 1 MG/ML 1 ML SYRINGE ONE ×2 (19:38→20:34)
[2019-08-29] MEDS: VERAPAMIL SYRINGE (5 MG/10 ML) INTRAARTER ONE ×2 (19:39→20:37)
[2019-08-29] MEDS ORDERED: HEPARIN SODIUM 1,000 UN/ML (10ML VL) IV ONE (19:41)
[2019-08-29] MEDS ORDERED: BIVALIRUDIN BOLUS 250 MG/50 ML IV ONE (19:59)
[2019-08-29] MEDS ORDERED: BIVALIRUDIN 250 MG in SODIUM CHLORIDE 0.9% 50 ML IV ONE (20:01)
[2019-08-29] MEDS ORDERED: IOPAMIDOL-370 125ML BTL INJ ONE (20:16)
[2019-08-29] MEDS ORDERED: IOPAMIDOL-370 50ML BTL INJ ONE ×2 (20:30→20:39)
[2019-08-29] MEDS ORDERED: CLOPIDOGREL 75 MG TAB ONE (20:33)
[2019-08-29] MEDS ORDERED: TICAGRELOR 90 MG TAB ONE (20:36)
[2019-08-29] MEDS ORDERED: TICAGRELOR 90 MG TAB PO ONE (20:38)
--- NOTE | 2019-08-29 20:44 | P.PCN ---
Date of Procedure: 08/29/19 Operative Findings: CARDIAC CATHETERIZATION AND PERCUTANEOUS CORONARY INTERVENTION PERFORMING PHYSICIAN: Abundio Mejia MD, [facility] PROCEDURE PERFORMED: 1. Selective right and left coronary angiogram 2. Left heart catheterization 3. Successful stenting of the proximal LAD using 4.0 x 23 and 3.5 x 8 mm Xience CHELLY with an excellent angiographic results INDICATION: This is a pleasant 64-year-old gentleman with history of coronary artery disease and prior stenting of the mid RCA was performed in 2017 as well as hypertension and dyslipidemia presented to the hospital with chest discomfort concerning for angina. He was seen by Dr. Dykes who recommended proceeding with coronary angiogram. COMPLICATION: None APPROACH: Right radial artery LEVEL OF SEDATION: Moderate with a sedation length of 57 minutes PROCEDURE DESCRIPTION: After obtaining an informed consent, the patient was brought to cardiac forestry laborer. Local anesthesia was performed using lidocaine subcutaneously. The right radial artery was cannulated using Seldinger technique, the guidewire passed easily, following that we advanced a 5-Serbian sheath dilator assembly, the wire and dilator were removed and sheath was flushed. Following that, 2 mg of verapamil along with 5000 unit heparin were given. Selective right and left coronary angiogram using a 6-Serbian JR4 and JL 3.5 catheters. Following that we did left heart catheterization using 6-Serbian pigtail catheter. After that I did intervene on the LAD. The procedure was completed there was no complication. SELECTIVE CORONARY ANGIOGRAM: The right coronary artery: Is a large caliber vessel and a dominant vessel. The proximal RCA has mild disease only. The mid RCA is a stented and the stent is patent. The RCA distally appeared to be angiographically normal and bifurcates into PDA and PLV branches and both appeared to be angiographically normal. Left main: It is angiographically normal. Bifurcates into LCx and LAD. The left circumflex: Is a large caliber vessel and nondominant vessel. The AV groove LCx appeared to be angiographically normal. Very proximal portion gives rises into a small to medium caliber first OM branch which appears to be angiographically normal. In the midportion gives rises into second OM branch which appeared to be angiographically normal as well. The left anterior descending artery: Is a large caliber vessel. The proximal LAD by the bifurcation off a large diagonal branch appears to have a lesion, tubular, in the range of 70-80%. The mid LAD has mild disease only. The LAD distally appears to be angiographically normal. The first diagonal branch which is a large caliber branch appears to be angiographically normal. HEMODYNAMICS: The LVEDP was 10 mmHg without significant gradient across aortic valve. PCI OF THE LAD: Anticoagulation was initiated using Angiomax. I did engage the left main using a JL 3.5 guide. I did wire the LAD using a whisper J-wire. I did balloon angioplasty using 3.5 x 12 mm balloon which was inflated under 14 kevin for 20 seconds. Subsequently I deployed 4.0 x 23 mm Xience CHELLY where the stent was positioned under fluoroscopy guidance and deployed under 12 kevin for 20 seconds. I postdilated the stent using 4.5 mm NC balloon which was inflated under 10 kevin for 20 seconds. The following angiogram showed what it seems distal H dissection which I decided to cover with the stent. I deployed 3.5 x 8 mm stent at the distal H of the previous stent where the stent was positioned under fluoroscopy guidance and deployed under 14 kevin for 20 seconds. The area of overlap between the 2 stents was dilated using the stent balloon. The final angiogram showed excellent angiographic results and the procedure was completed without any complication CONCLUSION: 1. Patent stent in the mid RCA 2. Severe disease involving the proximal LAD 3. Successful stenting of the proximal LAD using 4.0 x 23 and 3.5 x 8 mm Xience CHELLY with an excellent angiographic results POSTPROCEDURE MANAGEMENT: 1. Dual antiplatelet therapy 2. Risk factors modification 3. Follow-up with the patient
--- NOTE | 2019-08-29 20:52 | P.PN ---
Progress Note - Text Progress Note Date: 08/29/19 Chief Complaint: Chest pain History of presenting complaint: This is a pleasant 64-year-old patient of Dr. Margo Sharif. 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 Chronic stable medical conditions include GERD, hyperlipidemia, osteoarthritis, DVTs and PE, anxiety depression. Patient has been on Coumadin for DVT and PE. In May 2017 patient underwent intravascular ultrasound of the right coronary artery and subsequently had angioplasty stenting to the RCA. Patient for about a week P spleen having anterior chest wall pain. Described more as a pressure and the leg. Associated with shortness of breath dizziness. No Symptoms Had Sometimes Coming on at Rest and Progressively Worse with Activity. It Has Been Progressively Building up to crescendo on the Last 1 Week. Admitted for the Same. Diagnosed with Unstable Angina. Today-laying in bed. Having some stress headache. Awaiting cardiac catheterization. No further chest pain. Review of systems: Was done for constitutional, cardiovascular, GI, pulmonary. relevant finding as above Active Medications Acetaminophen (Tylenol Tab) 650 mg PO Q6HR PRN PRN Reason: Fever and/ or Mild Pain Last Admin: 08/29/19 15:33 Dose: 650 mg Documented by: Allopurinol (Zyloprim) 300 mg PO DAILY [facility] Last Admin: 08/29/19 06:50 Dose: 300 mg Documented by: Aspirin (Aspirin) 81 mg PO DAILY [facility] Last Admin: 08/29/19 06:50 Dose: 81 mg Documented by: Atorvastatin Calcium (Lipitor) 40 mg PO DAILY [facility] Last Admin: 08/29/19 06:53 Dose: 40 mg Documented by: Isosorbide Mononitrate (Imdur) 30 mg PO DAILY [facility] Last Admin: 08/29/19 06:49 Dose: 30 mg Documented by: Lorazepam (Ativan) 0.5 mg PO BID PRN PRN Reason: Anxiety Last Admin: 08/29/19 09:31 Dose: 0.5 mg Documented by: Metoprolol Tartrate (Lopressor) 37.5 mg PO BID [facility] Last Admin: 08/29/19 06:49 Dose: 37.5 mg Documented by: Ondansetron HCl (Zofran) 4 mg IVP Q6HR PRN PRN Reason: Nausea And Vomiting Last Admin: 08/29/19 13:41 Dose: 4 mg Documented by: Pantoprazole Sodium (Protonix) 40 mg PO AC-BRKFST [facility] Last Admin: 08/29/19 09:32 Dose: 40 mg Documented by: Physical examination: VITAL SIGNS: 98.1, 69, 16, 132/70, 97% room air GENERAL: Laying in bed, anxious EYES: Pupils equal. Conjunctiva normal. HEENT: External appearance of nose and ears normal, oral cavity grossly normal. NECK: JVD not raised; masses not palpable. HEART: First and second heart sounds are normal; no edema. LUNGS: Respiratory rate normal; clear to auscultation. ABDOMEN: Soft, nontender, liver spleen not palpable, no masses palpable. PSYCH: Alert and oriented x3; mood and affect anxious INVESTIGATIONS, reviewed in the clinical context: INR 1.9 Previous testing White count 9.4 hemoglobin 14.2 platelets 42 potassium 4 BUN 16 creatinine 1.01 INR 2.7 LDL 38 EKG tracing personally reviewed by me-normal sinus rhythm Chest x-ray film personally reviewed by me-lung whitman clear 2-D echo-EF 60-65%, no wall motion abnormality Assessment: -Unstable angina in a patient with known coronary artery disease -Coronary artery disease with stent to the RCA in May 2017 -Chronic DVT and PE for which patient is on Coumadin -Coumadin monitoring -GERD -Hyperlipidemia -Primary osteoarthritis -Hiatal hernia - Plan: Continue current medication. Patient due to go down for a cardiac catheterization later today.
[2019-08-29] MEDS ORDERED: METOCLOPRAMIDE 5 MG/ML 2 ML VIAL IVP STA (21:33)
[2019-08-29] MEDS ORDERED: SODIUM CHLORIDE 0.9% 1,000 ML IV SCH (21:45)
[2019-08-30] MEDS: PANTOPRAZOLE 40 MG TABLET PO SCH (06:30)
[2019-08-30] MEDS: ACETAMINOPHEN TAB 325 MG TAB PO PRN ×2 (06:45→11:31)
[2019-08-30] MEDS: ALLOPURINOL 300 MG TAB PO SCH (08:23)
[2019-08-30] MEDS: ATORVASTATIN 40 MG TAB PO SCH (08:23)
[2019-08-30] MEDS: ISOSORBIDE MONONITRATE ER 30 MG TAB.ER.24H PO SCH (08:23)
[2019-08-30] MEDS: METOPROLOL TARTRATE 25 MG TAB PO SCH ×2 (08:23→21:09)
[2019-08-30] MEDS: ASPIRIN 81 MG PO SCH (08:24)
[2019-08-30] MEDS: TICAGRELOR 90 MG TAB PO SCH ×2 (11:32→21:09)
--- NOTE | 2019-08-30 12:08 | P.PN ---
Subjective 64-year-old admitted for unstable angina underwent a cardiac catheterization and stenting of proximal LAD. Patient had previous stents as well. Patient was started on Bentyl and aspirin patient is on Coumadin as well for his multiple episodes of PE in the past patient has not been started on Coumadin yet but if cleared by cardiology patient will be resumed on Coumadin. Patient will be monitored tonight. Possibly of discharge tomorrow patient doesn't have any chest pain is complaining of some subjective shortness of breath although patient's saturations are okay no wheezing or crackles were appreciated on exam. Patient has EF of around 60-65%. Constitutional: Denied any fatigue denied any fever. Cardio vascular: denied any chest pain, palpitations Gastrointestinal denied any nausea vomiting Pulmonary: as mentioned in HPI Neurologic denied any new focal deficits All inpatient medications were reviewed and appropriate changes in these medications as dictated in the interval history and assessment and plan. Objective - Vital Signs Vital signs: Vital Signs Temp 98.3 F 08/30/19 11:58 Pulse 67 08/30/19 11:58 Resp 18 08/30/19 11:58 BP 122/78 08/30/19 11:58 Pulse Ox 94 L 08/30/19 11:58 Intake & Output 08/29/19 08/30/19 08/30/19 18:59 06:59 18:59 Intake Total 155 240 Output Total 500 Balance -345 240 Intake: IV 155 Oral 240 Output: Urine 500 Other: Voiding Method Urinal Urinal - Exam PHYSICAL EXAMINATION: GENERAL: The patient is alert and oriented x3, not in any acute distress. Well developed, well nourished. HEENT: Pupils are round and equally reacting to light. EOMI. No scleral icterus. No conjunctival pallor. Normocephalic, atraumatic. No pharyngeal erythema. No thyromegaly. CARDIOVASCULAR: S1 and S2 present. No murmurs, rubs, or gallops. PULMONARY: Chest is clear to auscultation, no wheezing or crackles. ABDOMEN: Soft, nontender, nondistended, normoactive bowel sounds. No palpable organomegaly. MUSCULOSKELETAL: No joint swelling or deformity. EXTREMITIES: No cyanosis, clubbing, or pedal edema. NEUROLOGICAL: Gross neurological examination did not reveal any focal deficits. SKIN: No rashes. - Labs CBC & Chem 7: 08/27/19 18:21 08/27/19 18:21 Assessment and Plan Plan: unstable angina:service post cardiac catheterization and stenting of the proximal LADpatient was started on dual antiplatelet therapy beta kylee and statin. -Coronary artery disease with previous stents to RCA -History of DVT and on Coumadin -Hyperlipidemia -Hiatal hernia and gastroesophageal reflux disease
--- NOTE | 2019-08-30 14:44 | P.DS ---
Providers Date of admission: 08/29/19 15:16 Attending physician: He Oreilly Consults: 08/27/19 19:21 Consult Physician Urgent Consulting Provider: Abundio Mejia Consult Reason/Comments: chest pain Do you want consulting provider notified?: Yes Primary care physician: Geni Sharif Hospital Course: Patient is admitted for unstable angina and underwent cardiac catheterization and stenting of the LAD and patient is being discharged with additional Colon And resuming aspirin and warfarin. Patient is cleared for discharge from cardiology perspective please refer to my dictation of progress note from for today for further details of discharge. Patient Condition at Discharge: Fair Plan - Discharge Summary Discharge Rx Participant: No New Discharge Prescriptions: New Ticagrelor [Brilinta] 90 mg PO BID #60 tab Isosorbide Mononitrate ER [Imdur] 30 mg PO DAILY #30 tab.er.24h Continue Allopurinol [Zyloprim] 300 mg PO DAILY Aspirin [Aspirin EC] 81 mg PO DAILY Atorvastatin Calcium [Lipitor] 40 mg PO DAILY #30 tab Omeprazole 20 mg PO DAILY Warfarin [Coumadin] 3.75 mg PO MOWEFR Warfarin [Coumadin] 7.5 mg PO SUTUTHSA Metoprolol Tartrate [Lopressor] 37.5 mg PO BID LORazepam [Ativan] 0.5 mg PO BID PRN PRN Reason: Anxiety Discontinued Clopidogrel [Plavix] 75 mg PO DAILY #90 tab Discharge Medication List Allopurinol [Zyloprim] 300 mg PO DAILY 01/12/15 [History] Aspirin [Aspirin EC] 81 mg PO DAILY 01/12/15 [History] Atorvastatin Calcium [Lipitor] 40 mg PO DAILY #30 tab 01/14/15 [Rx] Omeprazole 20 mg PO DAILY 03/05/16 [History] Warfarin [Coumadin] 3.75 mg PO MOWEFR 02/27/17 [History] Warfarin [Coumadin] 7.5 mg PO SUTUTHSA 02/27/17 [History] LORazepam [Ativan] 0.5 mg PO BID PRN 08/27/19 [History] Metoprolol Tartrate [Lopressor] 37.5 mg PO BID 08/27/19 [History] Isosorbide Mononitrate ER [Imdur] 30 mg PO DAILY #30 tab.er.24h 08/30/19 [Rx] Ticagrelor [Brilinta] 90 mg PO BID #60 tab 08/30/19 [Rx] Follow up Appointment(s)/Referral(s): Abundio Mejia MD [STAFF PHYSICIAN] - 1 Week Geni Sharif MD [Primary Care Provider] - 3 Days
--- NOTE | 2019-08-30 14:58 | P.PN ---
Subjective Progress Note Date: 08/30/19 This is a pleasant 64-year-old male past medical history significant for coronary artery disease status post stent placement to the RCA in 2017, history of DVT and PE in the past maintained on Coumadin, dyslipidemia, gout and gastroesophageal reflux disease with hiatal hernia. He follows in the office with Dr. Mejia. He has been experiencing a tight burning sensation in the midsternal region intermittently since Sunday. Initially he attributed his symptoms to his hiatal hernia however his [id number] antacids weren't improving his symptoms and then starting on Sunday evening he started noticing his symptoms were intensified and exacerbated by activity. Sitting at rest he felt no symptoms of chest discomfort or shortness of breath. On Sunday his symptoms continued to be exertional prompting him to start checking his blood pressures at home. His blood pressures were intermittently elevated which is abnormal for him. He also takes Ativan at home for anxiety and was attempting to take this thinking that this would possibly be related to anxiety however he continued to have exertional chest discomfort. He is seen and examined resting comfortably in bed in no acute distress. EKG reveals sinus mechanism with no acute ST or T-wave abnormalities heart rate of 71. Chest x-ray is negative for an acute cardiopulmonary process. Laboratory data reviewed, CBC unremarkable, INR 2.6, sodium 140, potassium 4.0, creatinine 1.01 with a GFR 78, cardiac enzymes negative 3, proBNP 132, LDL 38. Current cardiac medications include Coumadin, aspirin 81 mg daily, Plavix 75 mg daily, Lopressor 37.5 mg twice a day. Most recent echocardiogram obtained in the office July 2019 revealed preserved LV systolic function with ejection fraction 55% and normal diastolic function. 08/30: Yesterday, patient underwent heart catheterization with Dr. Mejia the revealed severe disease in the proximal LAD, patent stent in the RCA, successful stenting of the proximal LAD was completed with recommendations for dual antiplatelet therapy and risk factor modification. Discussed case with Dr. Mejia regarding recommended medications for home which will include Brilinta, Coumadin and baby aspirin. Patient has been updated and he will be following up with Dr. Mejia in the office. Patient is cleared for discharge from cardiology. Afebrile, blood pressure 122/78, heart rate 67, pulse ox 94% on room air GENERAL: This is a 64-year-old male in no apparent distress at the time of my examination. HEENT: Head is atraumatic, normocephalic. Pupils are equal, round. Sclerae anict alex. Conjunctivae are clear. Mucous membranes of the mouth are moist. Neck is supple. There is no jugular venous distention. No carotid bruit is heard. LUNGS: Clear to auscultation no wheezes, rales or rhonchi. No chest wall tenderness is noted on palpation or with deep breathing. HEART: Regular rate and rhythm without murmurs, rubs or gallops. S1 and S2 heard. ABDOMEN: Soft, nontender. Bowel sounds are heard. No organomegaly noted. EXTREMITIES: No evidence of peripheral edema and no calf tenderness noted. VASCULAR: Radial and dorsalis pedis pulses palpated, no evidence of clubbing. NEUROLOGIC: Patient is awake, alert and oriented x3. ASSESSMENT Unstable angina with coronary artery disease status post stent in the proximal LAD Coronary artery disease s/p stent placement to the mid and distal RCA 2016 History of DVT and PE maintained on coumadin Dyslipidemia Hiatal hernia PLAN Continue Coumadin, aspirin 81 mg daily, Lopressor 37.5 g twice daily, Lipitor 40 mg daily, Brilinta 90 mg twice daily, Imdur 30 mg daily Prescriptions for new medications have been sent to the patient's pharmacy Follow-up with Dr. Mejia in the office Thank you kindly for this consultation. Nurse Practitioner note has been reviewed, I agree with a documented findings and plan of care. Patient was seen and examined. Objective - Vital Signs Vital signs: Vital Signs Temp 98.2 F 08/30/19 08:28 Pulse 79 08/30/19 08:28 Resp 18 08/30/19 08:28 BP 129/73 08/30/19 08:28 Pulse Ox 96 08/30/19 08:28 Intake & Output 08/29/19 08/30/19 08/30/19 18:59 06:59 18:59 Intake Total 155 240 Output Total 500 Balance -345 240 Intake: IV 155 Oral 240 Output: Urine 500 Other: Voiding Method Urinal Urinal - Labs CBC & Chem 7: 08/27/19 18:21 08/27/19 18:21
[2019-08-30] MEDS: BUTALB/APAP/CAFF 50-325-40MG TAB PO PRN ×2 (17:16→21:10)
[2019-08-30] MEDS ORDERED: WARFARIN 7.5 MG TAB PO SCH (22:19)
[2019-08-30] MEDS: LORazepam 0.5 MG TAB PO PRN (22:41)
[2019-08-31] MEDS: PANTOPRAZOLE 40 MG TABLET PO SCH (06:53)
[2019-08-31] MEDS: BUTALB/APAP/CAFF 50-325-40MG TAB PO PRN ×2 (07:21→11:44)
[2019-08-31] MEDS: ATORVASTATIN 40 MG TAB PO SCH (08:24)
[2019-08-31] MEDS: ISOSORBIDE MONONITRATE ER 30 MG TAB.ER.24H PO SCH (08:24)
[2019-08-31] MEDS: ALLOPURINOL 300 MG TAB PO SCH (08:24)
[2019-08-31] MEDS: ASPIRIN 81 MG PO SCH (08:24)
[2019-08-31] MEDS: METOPROLOL TARTRATE 25 MG TAB PO SCH (08:24)
[2019-08-31] MEDS: TICAGRELOR 90 MG TAB PO SCH (08:25)
[2019-08-31] MEDS: LORazepam 0.5 MG TAB PO PRN (08:25)
[2019-08-31 09:16] VITALS: BP 140/77; PULSE 80; TEMP 98.2
--- NOTE | 2019-08-31 12:45 | P.DS ---
Providers Date of admission: 08/29/19 15:16 Attending physician: He Oreilly Consults: 08/27/19 19:21 Consult Physician Urgent Consulting Provider: Abundio Mejia Consult Reason/Comments: chest pain Do you want consulting provider notified?: Yes Primary care physician: Geni Sharif Hospital Course: 64-year-old admitted for unstable angina underwent a cardiac catheterization and stenting of proximal LAD. Patient had previous stents as well. Patient was started on Bentyl and aspirin patient is on Coumadin as well for his multiple episodes of PE in the past patient has not been started on Coumadin yet but if cleared by cardiology patient will be resumed on Coumadin. Patient will be monitored tonight. Possibly of discharge tomorrow patient doesn't have any chest pain is complaining of some subjective shortness of breath although patient's saturations are okay no wheezing or crackles were appreciated on exam. Patient has EF of around 60-65%. 08/31/2019 patient has concerns about the PE because of which patient is taking last night. Although my suspicion is low for pulmonary embolism and patient chest pain completely resolved.she'll be discharged today patient will be resumed on his Coumadin. PHYSICAL EXAMINATION: GENERAL: The patient is alert and oriented x3, not in any acute distress. Well developed, well nourished. HEENT: Pupils are round and equally reacting to light. EOMI. No scleral icterus. No conjunctival pallor. Normocephalic, atraumatic. No pharyngeal erythema. No thyromegaly. CARDIOVASCULAR: S1 and S2 present. No murmurs, rubs, or gallops. PULMONARY: Chest is clear to auscultation, no wheezing or crackles. ABDOMEN: Soft, nontender, nondistended, normoactive bowel sounds. No palpable organomegaly. MUSCULOSKELETAL: No joint swelling or deformity. EXTREMITIES: No cyanosis, clubbing, or pedal edema. NEUROLOGICAL: Gross neurological examination did not reveal any focal deficits. SKIN: No rashes. Please refer to my progress note for further details of hospitalization course. Patient Condition at Discharge: Fair Plan - Discharge Summary Discharge Rx Participant: No New Discharge Prescriptions: New Ticagrelor [Brilinta] 90 mg PO BID #60 tab Isosorbide Mononitrate ER [Imdur] 30 mg PO DAILY #30 tab.er.24h Butalb/Acetaminophen/Caffeine [Fioricet 50-300-40 mg Capsule] 1 - 2 cap PO Q4HR #30 cap Continue Allopurinol [Zyloprim] 300 mg PO DAILY Aspirin [Aspirin EC] 81 mg PO DAILY Atorvastatin Calcium [Lipitor] 40 mg PO DAILY #30 tab Omeprazole 20 mg PO DAILY Warfarin [Coumadin] 3.75 mg PO MOWEFR Warfarin [Coumadin] 7.5 mg PO SUTUTHSA Metoprolol Tartrate [Lopressor] 37.5 mg PO BID LORazepam [Ativan] 0.5 mg PO BID PRN PRN Reason: Anxiety Discontinued Clopidogrel [Plavix] 75 mg PO DAILY #90 tab Discharge Medication List Allopurinol [Zyloprim] 300 mg PO DAILY 01/12/15 [History] Aspirin [Aspirin EC] 81 mg PO DAILY 01/12/15 [History] Atorvastatin Calcium [Lipitor] 40 mg PO DAILY #30 tab 01/14/15 [Rx] Omeprazole 20 mg PO DAILY 03/05/16 [History] Warfarin [Coumadin] 3.75 mg PO MOWEFR 02/27/17 [History] Warfarin [Coumadin] 7.5 mg PO SUTUTHSA 02/27/17 [History] LORazepam [Ativan] 0.5 mg PO BID PRN 08/27/19 [History] Metoprolol Tartrate [Lopressor] 37.5 mg PO BID 08/27/19 [History] Isosorbide Mononitrate ER [Imdur] 30 mg PO DAILY #30 tab.er.24h 08/30/19 [Rx] Ticagrelor [Brilinta] 90 mg PO BID #60 tab 08/30/19 [Rx] Butalb/Acetaminophen/Caffeine [Fioricet 50-300-40 mg Capsule] 1 - 2 cap PO Q4HR #30 cap 08/31/19 [Rx] Follow up Appointment(s)/Referral(s): Abundio Mejia MD [STAFF PHYSICIAN] - 1 Week (office closed call sunday for a 1 week appt) Geni Sharif MD [Primary Care Provider] - 3 Days (office closed call sunday for appt) Patient Instructions/Handouts: *Surgery [facility] - After Heart Catheterization - 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
--- NOTE | 2019-08-31 12:59 | P.PN ---
Subjective Progress Note Date: 08/31/19 This is a pleasant 64-year-old male past medical history significant for coronary artery disease status post stent placement to the RCA in 2017, history of DVT and PE in the past maintained on Coumadin, dyslipidemia, gout and gastroesophageal reflux disease with hiatal hernia. He follows in the office with Dr. Mejia. He has been experiencing a tight burning sensation in the midsternal region intermittently since Sunday. Initially he attributed his symptoms to his hiatal hernia however his zzcl-bae-nxlsopi antacids weren't improving his symptoms and then starting on Sunday evening he started noticing his symptoms were intensified and exacerbated by activity. Sitting at rest he felt no symptoms of chest discomfort or shortness of breath. On Sunday his symptoms continued to be exertional prompting him to start checking his blood pressures at home. His blood pressures were intermittently elevated which is abnormal for him. He also takes Ativan at home for anxiety and was attempting to take this thinking that this would possibly be related to anxiety however he continued to have exertional chest discomfort. He is seen and examined resting comfortably in bed in no acute distress. EKG reveals sinus mechanism with no acute ST or T-wave abnormalities heart rate of 71. Chest x-ray is negative for an acute cardiopulmonary process. Laboratory data reviewed, CBC unremarkable, INR 2.6, sodium 140, potassium 4.0, creatinine 1.01 with a GFR 78, cardiac enzymes negative 3, proBNP 132, LDL 38. Current cardiac medications include Coumadin, aspirin 81 mg daily, Plavix 75 mg daily, Lopressor 37.5 mg twice a day. Most recent echocardiogram obtained in the office July 2019 revealed preserved LV systolic function with ejection fraction 55% and normal diastolic function. 08/30: Yesterday, patient underwent heart catheterization with Dr. Mejia the revealed severe disease in the proximal LAD, patent stent in the RCA, successful stenting of the proximal LAD was completed with recommendations for dual antiplatelet therapy and risk factor modification. Discussed case with Dr. Mejia regarding recommended medications for home which will include Brilinta, Coumadin and baby aspirin. Patient has been updated and he will be following up with Dr. Mejia in the office. Patient is cleared for discharge from cardiology. 08/31: Patient states that yesterday he was prepared for discharge but he developed shortness of breath difficulty breathing and discharge was held. He states his symptoms have resolved. He has been in a sinus rhythm running in the 60s. He denies having any chest pain or shortness of breath. Patient is cleared today from cardiology for discharge home. Afebrile, blood pressure 140/77, heart rate 80, pulse ox 96% on room air GENERAL: This is a 64-year-old male in no apparent distress at the time of my examination. HEENT: Head is atraumatic, normocephalic. Pupils are equal, round. Sclerae anicteric. Conjunctivae are clear. Mucous membranes of the mouth are moist. Neck is supple. There is no jugular venous distention. No carotid bruit is heard. LUNGS: Clear to auscultation no wheezes, rales or rhonchi. No chest wall tenderness is noted on palpation or with deep breathing. HEART: Regular rate and rhythm without murmurs, rubs or gallops. S1 and S2 heard. ABDOMEN: Soft, nontender. Bowel sounds are heard. No organomegaly noted. EXTREMITIES: No evidence of peripheral edema and no calf tenderness noted. VASCULAR: Radial and dorsalis pedis pulses palpated, no evidence of clubbing. NEUROLOGIC: Patient is awake, alert and oriented x3. ASSESSMENT Unstable angina with coronary artery disease status post stent in the proximal LAD Coronary artery disease s/p stent placement to the mid and distal RCA 2016 History of DVT and PE maintained on coumadin Dyslipidemia Hiatal hernia PLAN Continue Coumadin, aspirin 81 mg daily, Lopressor 37.5 g twice daily, Lipitor 40 mg daily, Brilinta 90 mg twice daily, Imdur 30 mg daily Prescriptions for new medications have been sent to the patient's pharmacy Follow-up with Dr. Mejia in the office Thank you kindly for this consultation. Nurse Practitioner note has been reviewed, I agree with a documented findings and plan of care. Patient was seen and examined. Objective - Vital Signs Vital signs: Vital Signs Temp 98.2 F 08/31/19 08:00 Pulse 80 08/31/19 08:00 Resp 18 08/31/19 08:00 BP 140/77 08/31/19 08:00 Pulse Ox 96 08/31/19 08:00 Intake & Output 08/30/19 08/31/19 08/31/19 18:59 06:59 18:59 Intake Total 480 250 Balance 480 250 Weight 76.8 kg Intake: Oral 480 250 Other: Voiding Method Urinal Toilet Toilet Urinal Urinal # Voids 2 1 - Labs CBC & Chem 7: 08/27/19 18:21 08/27/19 18:21
[2019-09-01] MEDS ORDERED: WARFARIN 3 MG TAB PO SCH (18:00)
== END 2019-08-31 13:10 | disposition home or self-care (01) | DRG 247 ==
LOC: EC 17:52 → 1SOBS 19:49 → OBSVTOIN 08-29 15:16 → 3SCARD 08-29 20:38
PROVIDERS: ADMIT Hospitalist; ATTEND Hospitalist
PROC: 4A023N7 Measurement of Cardiac Sampling and Pressure, Left Heart, Percutaneous Approach (ICD-10-PCS; principal; 2019-08-29 14:50)
PROC: 027035Z Dilation of Coronary Artery, One Artery with Two Drug-eluting Intraluminal Devices, Percutaneous Approach (ICD-10-PCS; principal; 2019-08-29 14:50)
PROC: B2111ZZ Fluoroscopy of Multiple Coronary Arteries using Low Osmolar Contrast (ICD-10-PCS; principal; 2019-08-29 14:50)
DX: I25.110 Atherosclerotic heart disease of native coronary artery with unstable angina pectoris (principal); E78.5 Hyperlipidemia, unspecified; F41.9 Anxiety disorder, unspecified; I10 Essential (primary) hypertension; I34.1 Nonrheumatic mitral (valve) prolapse; J45.909 Unspecified asthma, uncomplicated; K21.9 Gastro-esophageal reflux disease without esophagitis; K44.9 Diaphragmatic hernia without obstruction or gangrene; M19.91 Primary osteoarthritis, unspecified site; Z79.01 Long term (current) use of anticoagulants; Z79.02 Long term (current) use of antithrombotics/antiplatelets; Z79.82 Long term (current) use of aspirin; Z79.899 Other long term (current) drug therapy; Z82.49 Family history of ischemic heart disease and other diseases of the circulatory system; Z86.711 Personal history of pulmonary embolism; Z86.718 Personal history of other venous thrombosis and embolism; Z87.09 Personal history of other diseases of the respiratory system; Z87.11 Personal history of peptic ulcer disease; Z87.442 Personal history of urinary calculi; Z87.891 Personal history of nicotine dependence; Z90.81 Acquired absence of spleen; Z95.5 Presence of coronary angioplasty implant and graft
CPT/HCPCS: 36415; 71046; 80053; 80061; 83690; 83735; 83880; 84484; 85025; 85379; 85610; 85730; 93005; 93306; 93458; 99285; C1874